=== PATIENT | female | born 1945 | race Caucasian/White ===

== ENCOUNTER → 2016-09-28 | Outpatient (REF) | payer MEDICARE ==
[~2016-09-28] MED LIST: AMLO5TAB2 PO; AVAP300T23 PO; CALCTAB68 PO; CARV6.25 PO; CENTTAB12 PO; CHLO125TA PO; CHLO25TA GT; KLOR20PO12 PO; LUTE20CA PO; OMEP40CA2 PO; PRAV40TA2 PO; TIMO5OPG OD; VITA-171 PO; VITA10006 PO
== END ==
LOC: M LAB REF 18:29
PROVIDERS: ATTEND Nurse Practitioner Adult Health
DX: R30.0 Dysuria (principal)

== ENCOUNTER 2018-06-13 14:02 | Outpatient (RCR) | payer MEDICARE ==
[~2018-06-13 14:02] MED LIST changes: -AMLO5TAB2 PO; +AMLO5TAB6 PO
== END 2018-06-17 ==
LOC: M ST 14:02
PROVIDERS: ATTEND Otolaryngology
DX: R49.0 Dysphonia (principal); M62.81 Muscle weakness (generalized)
CPT/HCPCS: 92524; G9171; G9172

== ENCOUNTER 2018-07-09 12:45 | Outpatient (RCR) | payer MEDICARE | END 2018-07-18 | LOC: M ST 12:45 | PROVIDERS: ATTEND Otolaryngology | DX: R49.8 Other voice and resonance disorders (principal); G60.8 Other hereditary and idiopathic neuropathies ==

== ENCOUNTER 2018-07-22 12:41 | Outpatient (RCR) | payer MEDICARE | END 2018-08-15 | LOC: M ST 12:41 | PROVIDERS: ATTEND Otolaryngology | DX: R49.8 Other voice and resonance disorders (principal); R49.0 Dysphonia; G60.8 Other hereditary and idiopathic neuropathies ==

== ENCOUNTER 2018-08-19 13:17 | Outpatient (RCR) | payer MEDICARE | END 2018-09-15 | LOC: M ST 13:17 | PROVIDERS: ATTEND Otolaryngology | DX: R49.0 Dysphonia (principal) ==

== ENCOUNTER 2019-07-12 14:14 | Inpatient (IN) | payer MEDICARE ==
[~2019-07-12] VITALS: Ht 157.5 cm; Wt 54.2 kg
[~2019-07-12 14:14] MED LIST changes: -OMEP40CA2 PO; +OMEP40CA97 PO; +TIMO0.5S7 OD; -TIMO5OPG OD
[2019-07-12] MEDS ORDERED: MORPHINE 4 MG/ML 1ML VIAL/SYRINGE (J2270) IV ONE (15:00)
[2019-07-12] MEDS ORDERED: NITR1CAP26 PO (15:18)
[2019-07-12] MEDS ORDERED: MUCI600T31 PO (15:18)
[2019-07-12] MEDS ORDERED: CALC250T PO (15:18)
[2019-07-12] MEDS ORDERED: NITR-67 PO (15:18)
[2019-07-12] MEDS ORDERED: fentaNYL 100 MCG/2 ML INJECTION (J3010) IV ONE ×2 (15:45→16:15)
[2019-07-12] MEDS ORDERED: ISOVUE-370 76% 100ML VIAL (Q9967) As Ordered ONE (16:32)
[2019-07-12 17:06] LABS: BASO # 0.1 10^3/uL (0.0-0.2); BASO % 0.9 % (0.0-1.0); EOS # 0.1 10^3/uL (0.0-0.5); EOS % 0.9 % (0.0-3.0); HEMATOCRIT 43.7 % (36.0-47.0); HEMOGLOBIN 13.7 g/dl (12.0-15.5); LYMPH # 0.6 10^3/uL (1.5-5.0); LYMPH % 11.9 % (24.0-44.0); MEAN CORPUSCULAR HEMOGLOBIN 28.6 pg (27.0-33.0); MEAN CORPUSCULAR HGB CONC 31.4 g/dl (32.0-36.5); MEAN CORPUSCULAR VOLUME 91.2 fl (80.0-96.0); MONO # 0.3 10^3/uL (0.0-0.8); MONO % 4.6 % (0.0-5.0); NEUTROPHILS # 4.3 10^3/uL (1.5-8.5); NEUTROPHILS % 80.6 % (36.0-66.0); PLATELET COUNT, AUTOMATED 199 10^3/uL (150-450); RED BLOOD COUNT 4.79 10^6/uL (4.00-5.40); WHITE BLOOD COUNT 5.4 10^3/uL (4.0-10.0)
[2019-07-12] MEDS ORDERED: diazePAM 5 MG TAB PO ONE (19:00)
[2019-07-12] MEDS ORDERED: NORCO, ANEXSIA 5/325MG TABLET (HYDROcodone/ACETAMINOPHEN) PO ONE (19:00)
[2019-07-12] MEDS: PRAVASTATIN 20 MG TAB PO SCH (21:00)
--- NOTE | 2019-07-12 22:02 | REPVR ---
PROCEDURE INFORMATION: Exam: MR Thoracic Spine Without Contrast Exam date and time: 07/12/2019 9:02 PM Age: 74 years old Clinical indication: Pain and injury or trauma; Initial encounter; Sprain or strain; Pain in thoracic spine; Without myelpathy or radiculopathy; Injury date: 07/12; Injury details: , PT states she had fallen and has had lots of pain; Additional info: L1 enplate depression w/ retropulsion, eval ligaments TECHNIQUE: Imaging protocol: Multiplanar magnetic resonance images of the thoracic spine without contrast. COMPARISON: CT Spine,thoracic w/o contrast 07/12/2019 3:04 PM FINDINGS: Motion artifact. Thoracic levels demonstrate preserved height and AP alignment. There are a few incidental vertebral body hemangiomas. No evidence of discitis/osteomyelitis. No abnormal cord signal or cord expansion. No epidural fluid collection. No significant central or foraminal compromise throughout. IMPRESSION: 1. No acute abnormality involving the thoracic spine. 2. Widely patent central canal. Electronically signed by: Dex Field On 07/12/2019 22:01:38 PM
--- NOTE | 2019-07-12 22:06 | REPVR ---
PROCEDURE INFORMATION: Exam: MR Lumbar Spine Without Contrast. Exam date and time: 07/12/2019 9:02 PM Age: 74 years old Clinical indication: Pain and injury or trauma; Initial encounter; Sprain or strain, lumbar ligaments; Low back pain; Injury date: 07/12; Injury details: PT states she had fallen and has had lots of pain; Additional info: L1 enplate depression w/ retropulsion, eval ligaments TECHNIQUE: Imaging protocol: Multiplanar magnetic resonance images of the lumbar spine without contrast. COMPARISON: CT Spine, lumbar w/o contrast 07/12/2019 3:04 PM FINDINGS: Eshj-rj-khtsylge superior endplate compression fracture involving L1 with edema. Osseous retropulsion measures 3 mm. Trace anterolisthesis of L2 on L3. Remainder demonstrates preserved height and AP alignment. There is disc space narrowing at L5-S1, moderate to severe. There are degenerative endplate changes at L5-S1. No epidural fluid collection. Conus medullaris terminates at L1. No evidence of ligamentous injury. L1-L2: No central or foraminal stenosis. L2-L3: Minimal disc bulge and mild bilateral facet joint arthropathy. No significant central or foraminal stenosis. L3-L4: Uixa-ep-ogqhjtxo bilateral facet joint arthropathy. No significant central or foraminal stenosis. L4-L5: Mild disc bulge and svag-il-xgpteihw bilateral facet joint arthropathy. No significant central or foraminal stenosis. L5-S1: Mild to moderate disc bulge and mild bilateral facet joint arthropathy. No significant central canal stenosis. There is napm-eo-zsxlgngm right and moderate left foraminal stenosis. IMPRESSION: Ydrh-pd-rfhlqsuz superior endplate compression fracture involving L1, acute/subacute. Mild osseous retropulsion without significant central canal stenosis. Electronically signed by: Dex Field On 07/12/2019 22:05:56 PM
[2019-07-12] MEDS ORDERED: CENT1TAB PO (22:51)
[2019-07-12] MEDS ORDERED: TIMO0.5S3 OU (22:51)
[2019-07-12] MEDS ORDERED: VITA100054 PO (22:51)
[2019-07-13] MEDS ORDERED: ACETAMINOPHEN TAB 650MG DOSE (2X325MG) PO PRN (00:15)
[2019-07-13] MEDS ORDERED: KETOROLAC 30 MG/ML VIAL (J1885) IV PRN (00:15)
[2019-07-13 02:15] VITALS: BP 172/100
[2019-07-13 03:20] VITALS: BP 144/80
--- NOTE | 2019-07-13 06:46 | REP ---
CT CERVICAL SPINE WITHOUT CONTRAST: 07/12/2019. Clinical history: Trauma, patient fell. Evaluate for compression fracture or other post traumatic change. Findings: Standard trauma protocol with coronal and sagittal bone window reconstructions provided. The normal sagittal lordosis is maintained. Cervical spondylosis at C5-6 and C6-7 with small anterior osteophytes seen. No compression deformity or destructive lesions. Slight disc space narrowing at C5-6 with other disc space heights intact. The dens shows normal relationship to C1 on all images with no dens fracture. Craniocervical junction intact. Facet arthropathy upper cervical levels on the left. Spinous processes, lamina, pedicles, facets and transverse processes otherwise intact. The upper thoracic vertebral bodies and those portions of the first four paired ribs and medial clavicles seen were unremarkable. The lung apices visible were unremarkable. Dilatation of the aortic arch with tortuosity. Atherosclerotic calcifications noted. Impression: 1. Diffuse degenerative disc changes without compression fracture, malalignment or other acute finding. Electronically Signed by Vahe Lay MD 07/13/2019 08:05 P
[2019-07-13] MEDS: MORPHINE 4 MG/ML 1ML VIAL/SYRINGE (J2270) IV PRN ×2 (06:47→13:42)
--- NOTE | 2019-07-13 06:50 | REP ---
CT THORACIC SPINE WITHOUT CONTRAST: 07/12/2019. Comparison: CT angiography and lateral chest 04/06/2016. Clinical history: Trauma, patient fell. Findings. Trauma protocol was utilized. The thoracic vertebral bodies show no compression fracture or malalignment. Posterior ribs included were unremarkable. Anterior clavicles intact. Rib articulations preserved. Posterior elements show no fracture or focal lesion. Those portions of lungs visible were intact. There is compressive atelectatic change adjacent to the descending thoracic aorta. Again noted to be a thoracic aortic aneurysm involving the ascending arch and descending portion. Only a portion of the ascending aorta is seen. At the aydin the descending aorta has an AP diameter 4.2 cm, 4.1 cm at this same level on previous CT. Aneurysm appears larger in the distal descending aorta, but it is difficult to compare this thoracic CT to a chest angiogram Impression: 1. Demineralization, but no visible fracture, compression deformity, avulsion or malalignment. No central canal stenosis. Posterior rib articulations intact. 2. Thoracic aortic aneurysm seen in part. Some of it appears to be larger in diameter than 16. Comparison is difficult when comparing to a complete thoracic aortogram. Some small amount of atelectatic change or effusion adjacent to the aorta inferiorly. Electronically Signed by Vahe Lay MD 07/13/2019 08:05 P
--- NOTE | 2019-07-13 07:06 | REP ---
CT LUMBAR WITHOUT CONTRAST: 07/12/2019. Comparison: CT abdomen and pelvis 09/11/2017. Clinical history: Trauma. Possible fracture. Known thoraco-abdominal thoracic aneurysm. Findings. Standard trauma protocol utilized. The normal lordosis is reduced. There is disc space narrowing and vacuum phenomenon at L5-S1, not much change. Discogenic sclerosis in the sacral aspect of the L5-S1 level. The other disc levels show slight narrowing at L2-3 disc space. Anterior osteophytes noted there. There is a mild grade 1 endplate depression at L1. This could be acute. There is slight retropulsion of the posterior margin of the L1 vertebral body superiorly. However, this does not cause any significant central canal stenosis with AP canal diameter still 12 mm. There is no evidence for instability. Adjacent ribs intact at T12. Is there tenderness at the spinous process of L1? I do not see fracture of the remainder of the lumbar vertebral bodies or visible sacrum. The posterior elements were intact although there is some facet arthritis at L4-5 and L5-S1. SI joints show some minor sclerosis iliac margins but no erosion or narrowing of the joint space. There is atherosclerotic calcification of the aorta without aneurysm of the abdominal aorta. Extensive sigmoid diverticulosis noted without diverticulitis. Impression: 1. Grade 1 superior endplate depression of L1 that may be acute. No posterior element involvement. Posterior neural arch shows very slight retropulsion of the few millimeters of the superior aspect of L1 but the AP canal diameter remains widely patent at 12 mm. 2. Small marginal osteophytes at multiple levels and degenerative disc disease greatest at L5-S1 with some progression since the 2018 study. 3. Facet arthropathy lower lumbar spine without spinal central canal stenosis or spondylolysis. Electronically Signed by Vahe Lay MD 07/13/2019 08:05 P
--- NOTE | 2019-07-13 07:23 | HPEPDOC ---
General Date of Admission Jul 13, 2019 at 00:05 Date of Service: Jul 13, 2019 Attending Physician: JOHNNY QUINONES MD Chief Complaint The patient is a 74-year-old female admitted with a reason for visit of Compression Fx Of L1 Lumbar Vertabra. 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 In the ED she was in significant 10/10 lower back pain and vitals on arrival were 207/112. HR 84, afebrile and saturating well on room air. She was given fentanyl, morphine, norco and valium with some relief. She had multiple CTs of her cervica, thoracic and lumbar spine as well as MRIs, with a lumbar spine MRI revealing that she sustained a dhti-zq-cliptypx superior endplate compression fracture involving L1 with mild osseous retropulsion without significant central canal stenosis. Orthopedics was consulted by the ED and suggested a TLSO brace and pain control with admission to medicine. The rest of her workup was grossly benign. Home Medications Scheduled Calcium Citrate (Calcium Citrate) 250 Mg Tablet, 500 MG PO BID, (Reported) Cholecalciferol (Vitamin D3) (Vitamin D3) 1,000 Unit Capsule, 1,000 UNIT PO DAILY, (Reported) Guaifenesin (Mucinex) 600 Mg Tab.er.12h, 600 MG PO BID, (Reported) Lutein (Lutein) 20 Mg Cap, 20 MG PO DAILY, (Reported) Multivit-Min/FA/Lycopen/Lutein (Centrum Silver Tablet) 1 Each Tablet, 1 TAB PO DAILY, (Reported) Nitrofurantoin Macrocrystal (Nitrofurantoin) 100 Mg Capsule, 100 MG PO DAILY, (Reported) Pravastatin Sodium (Pravastatin Sodium) 40 Mg Tab, 20 MG PO DAILY, (Reported) Timolol Maleate (Timoptic-Xe) 0.5% Evelina.gel, 1 DROP OU QAM, (Reported) Allergies Coded Allergies: infliximab (Verified Allergy, Severe, anaphylaxis/face swelling, 07/13/19) anaphylaxis Penicillins (Verified Allergy, Intermediate, amoxicillin=rash/facial swelling, 07/13/19) Hives NSAIDS (Non-Steroidal Anti-Inflamma (Verified Allergy, Unknown, HIVES,RASH ON FACE, 07/13/19) Uncoded Allergies: METAL (Adverse Reaction, Unknown, RASH,REDNESS, 07/05/09) Past Medical History Medical History Ulcerative colitis Psoriatic arthritis Diverticulosis without perforation GERD HTN 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 AAA being monitor Thoracic AA repaired Surgical History thoracic AA repair adrenal mass removal hysterectomy tonsillectomy A-FIB/CHADSVASC A-FIB History Current/History of A-Fib/PAF?: No Current PO Anticoag Therapy: No Age/Risk Factor Scoring CHADSVASC: CHADSVASC Response (Comments) Value Age Risk Factor Age 65-74 years old 1 Gender Risk Factor Female 1 Hx of CHF No 0 Hx of HTN Yes 1 Hx of Stroke/TIA/or VTE No 0 Hx of Diabetes No 0 Hx of Vascular Disease No 0 Total 3 Treatment Treatment ordered: NONE Reason Anticoagulant not given: Not indicated/[id number] Review of Systems Constitutional: Denies: Chills, Fever, Night Sweats Eyes: Denies: Pain, Vision change ENT: Denies: Head Aches, Ear Pain, Dysphagia Skin: Denies: Rash, Lesions, Breakdown Pulmonary: Denies: Dyspnea, Cough Cardiovascular: Denies: Chest Pain, Palpitations, Orthopnea, Paroxysmal Noc. Dyspnea, Lt Headedness Gastrointestinal: Denies: Nausea, Vomiting, Abdominal Pain, Diarrhea Genitourinary: Denies: Dysuria, Frequency, Incontinence, Hematuria, Retention, Other Symptoms Hematologic: Denies: Bruising, Bleeding Excessively Endocrine: Denies: Polydipsia, Polyphagia, Polyuria, Heat Intolerance, Cold Intolerance, Other Endocrine Sx Musculoskeletal: Reports: Back Pain; Denies: Neck Pain, Shoulder Pain, Arm Pain, Hand Pain, Leg Pain, Foot Pain, Joint Pain, Muscle Pain, Spasms, Other Symptoms Neurological: Denies: Weakness, Numbness, Change in speech, Confusion Psych: Reports: Mood Normal; Denies: Depression, Memory Issues Physical Examination General Exam: Positive: Alert, No Acute Distress Eye Exam: Positive: PERRLA, Conjunctiva & lids normal, EOMI; Negative: Sclera icteric ENT Exam: Positive: Atraumatic, Mucous membr. moist/pink, Pharynx Normal Neck Exam: Positive: Supple; Negative: JVD, thyromegaly Chest Exam: Positive: Clear to auscultation, Normal air movement Heart Exam: Positive: Rate Normal, Regular Rhythm, Normal S1, Normal S2; Negative: Murmurs, Rubs Telemetry: Positive: No significant arrhythmia Abdomen Exam: Positive: Normal bowel sounds, Soft; Negative: Tenderness, Hepatospenomegaly Extremity Exam: Positive: Normal pulses; Negative: Clubbing, Cyanosis, Edema Skin Exam: Positive: Nl turgor and temperature; Negative: Breakdown, Lesion Neuro Exam: Positive: Normal Speech, Strength at 5/5 X4 ext, Sensation Intact, Cranial Nerves 3-12 NL Psych Exam: Positive: Mental status NL, Mood NL, Oriented x 3 Vital Signs Vital Signs Date Time Temp Pulse Resp B/P (MAP) Pulse Ox O2 Delivery O2 Flow Rate FiO2 07/13/19 06:57 17 95 Room Air 07/13/19 03:20 144/80 (101) 07/13/19 02:15 97.6 101 Laboratory Data Labs 24H Laboratory Tests 2 07/12/19 14:48: Immature Granulocyte % (Auto) 1.1, Neutrophils (%) (Auto) 80.6H, Lymphocytes (%) (Auto) 11.9L, Monocytes (%) (Auto) 4.6, Eosinophils (%) (Auto) 0.9, Basophils (%) (Auto) 0.9, Neutrophils # (Auto) 4.3, Lymphocytes # (Auto) 0.6L, Monocytes # (Auto) 0.3, Eosinophils # (Auto) 0.1, Basophils # (Auto) 0.1, Nucleated Red Blood Cells % (auto) 0.0 07/12/19 16:13: POC Glucose (Misc Panel) 115H, POC Sodium (Misc Panel) 132L, POC Potassium (Misc Panel) 4.0, POC Chloride (Misc Panel) 95L, POC Total CO2 (Misc Panel) 30.0H, POC Blood Urea Nitrogen (Misc Panel 16, POC Ionized Calcium (Misc Panel) 4.9, POC Creatinine (Misc Panel) 0.9, POC Hematocrit (Misc Panel) 44.0 CBC/BMP Laboratory Tests 07/12/19 14:48 Assessment/Plan 74 yo W who presented to the ED with back pain after slipping and falling out of her rolling office chair while she was working in her office and sustained a myac-jw-huvbesdf superior endplate compression fracture involving L1 with mild osseous retropulsion without significant central canal stenosis with orthopedics recommending TLSO brace and pain control. L1 compression fracture: -On morphine 4Q6H PRN -Flexeril 5 TID for spasms -TLSO brace per orthopedics -orthopedics consult Otherwise continue home meds -Macrobid for recurrent UTIs suppressive therapy -Pravachol for HLD -TImolol eye drops for glaucoma -Calcium carbonate and Vit D DVT ppx: lovenox Diet: regular Plan / VTE VTE Prophylaxis Ordered?: Yes JOHNNY QUINONES MD Jul 13, 2019 07:23
--- NOTE | 2019-07-13 08:03 | REP ---
CT ANGIOGRAM CHEST: 07/12/2019. Comparison: 04/12/2016. Clinical history: Known thoracic aortic aneurysm. CT thoracic spine suggested some atelectasis and/or fluid or both adjacent to the distal descending aorta. Technique: The patient received a bolus of 100 mL Isovue 370, scanning through the chest with our CT thoracic aortogram technique with axial and sagittal standard reconstructions and coronal MIP reformats. Findings: Lung morales are well inflated. There is no pneumothorax. The distal descending thoracic aortic aneurysm shows increase in peripheral thrombus and size of aorta. Transverse diameter of 5.5 cm on image 77 and at an equivalent level on the 2016 study 4.6 cm. Peripheral atherosclerotic plaque increased. There is compressive atelectatic change showing enhancement of that atelectatic lung of the lower lobe adjacent to this enlarged aneurysm. There is a small amount of fluid in the medial basal segment left lower lobe. This does not have evidence for hyperdense enhancement or enhancing blood within it. I do not suspect a leak. There is no evidence of dissection. Dilatation of the ascending aorta from the root with diameter 4.7 cm maximum. The proximal arch transverse diameter of 3.9 cm. The distal arch transverse diameter is 3.8 cm. It is quite tortuous. I do not see dissection. There are sternotomy wires from a presumed repair. There is an aberrant right subclavian artery coursing posterior to the esophagus and trachea as before. Both right and left common carotid arteries and the left subclavian show origin off the arch. There is no pathologic sized mediastinal or hilar adenopathy. There is no pneumothorax. Remainder of the ribs, scapulae, clavicles and humeral heads not seen on thoracic spine CT were unremarkable. Impression: 1. Ascending arch and descending thoracic aortic aneurysm with maximum AP diameter of the ascending aorta 4.7 cm. This was 0.4 cm on the previous study. The maximum transverse diameter of the descending aorta just before the aortic hiatus of the diaphragm was 5.5 cm, previously 4.6 cm in 2016. No dissection. 2. Atelectatic change adjacent to this ectatic tortuous distal aorta with enhancement of that atelectatic lung. There is small volume of pleural effusion adjacent. Pleural fluid is very low density. No evidence of a leak. 3. 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 Electronically Signed by Vahe Lay MD 07/13/2019 08:11 P
--- NOTE | 2019-07-13 08:09 | REP ---
CT ANGIOGRAM ABDOMEN AND PELVIS: 07/12/2019. Clinical history: Thoracic aortic aneurysm, please evaluate abdominal aorta. Technique: Bolus of 100 mL Isovue 370, scanning through the abdomen with coronal and sagittal reformats and coronal MIP reformats provided. Comparison: 09/11/2017. Findings: The distal thoracic aorta shows aneurysm up to 5.5 cm in transverse diameter with heavy atherosclerotic calcifications peripherally. There is enhancing atelectatic lung draped around the descending aorta distally. Trace amount of effusion in the medial basal segment left lower lobe, quite low density, no blood. No suspected leak. Heavy atherosclerotic plaque and thrombus around the lumen as before. 3.5 cm AP diameter at the aortic hiatus. Just below the SMA takeoff it has tapered to 2.7 cm. At the bifurcation it measures 1.3 cm. Atherosclerotic calcifications peripherally but no dissection. No distal abdominal aortic aneurysm. No evidence of a leak. No periaortic or other retroperitoneal pathologic sized lymphadenopathy. Liver, spleen, gallbladder, pancreas and adrenal glands grossly unchanged. The kidneys show an extrarenal pelvis on the right side, but not the left. No hydroureter or ureteral stone. No renal stone. Upper pole cyst on the left about a centimeter. Colon and small bowel loops without acute finding. There is diverticulosis of the left colon without diverticulitis. Lung window review of all slices shows some gas scattered throughout the small bowel and colon but no perforation or free air. Bone windows were discussed in detail on the CT lumbar spine. Grade 1 compression superior endplate L1 with minimal retropulsion and no central canal stenosis at L1. CT pelvis: The bladder is well distended. There is no stone, mass or wall thickening. Extensive diverticulosis distal left colon and sigmoid without diverticulitis. No ventral or inguinal hernia. No pelvic mass. The bones of the pelvis and hips with minimal degenerative change and no destructive lesion. Impression: 1. Distal thoracic aortic aneurysm extending into the proximal abdominal cavity with aneurysmal dilatation up to 3.6 cm of the abdominal aorta. No dissection. No leak. The infrarenal abdominal aortic aneurysm has normal diameter. It is tortuous and has some calcifications but no dissection. No other significant soft tissue finding. 2. Grade 1 superior endplate wedge compression deformity of L1 with minimal retropulsion about 2 mm of the superior margin of the L1 at the neural canal. No central canal stenosis with over 12 mm AP diameter. Electronically Signed by Vahe Lay MD 07/13/2019 08:11 P
[2019-07-13] MEDS: CYCLOBENZAPRINE 5MG TABLET PO PRN ×2 (08:32→20:27)
[2019-07-13] MEDS: TIMOLOL XE GFS 0.5% OPHTH 5 ML OU SCH (08:40)
[2019-07-13] MEDS: VITAMIN D 1,000 INTERNATIONAL UNITS TABLET PO SCH (08:40)
[2019-07-13] MEDS: guaiFENesin ER 600 MG TAB PO SCH ×2 (08:40→20:27)
[2019-07-13] MEDS: MULTIVITAMINS/MINERALS THERAP 1 TAB PO SCH (08:40)
[2019-07-13] MEDS: CALCIUM CARBONATE 500 MG CHEW U/D PO SCH ×3 (08:40→20:27)
[2019-07-13] MEDS: ENOXAPARIN 40 MG/0.4 ML SYRINGE (J1650) SC SCH (08:40)
[2019-07-13] MEDS: NITROFURANTOIN (MACROBID) 100 MG CAP PO SCH (08:40)
[2019-07-13] MEDS ORDERED: PERCOCET 5MG/325MG TAB PO PRN (10:30)
--- NOTE | 2019-07-13 14:06 | CR ---
DATE OF CONSULTATION: 07/13/2019 CHIEF COMPLAINT: Low back pain. Patient presented to the emergency room (ER) today after a slip and fall at home after she fell off her office chair. She immediately appreciated increased pain in the low back and inability to ambulate. She denies any numbness, tingling, fevers, chills, nausea, vomiting, saddle anesthesia, bowel or bladder incontinence, just severe, debilitating 10/10 pain that is sharp, along with muscle spasms of the low back. Denies any pain elsewhere. The pain is made worse with any sort of movements, going to side, sitting up and attempting to stand, and improved with only laying completely still. A complete 10 system review was conducted and pertinent positive and negatives in the history of present illness (HPI). All other systems negative. ALLERGIES: ASPIRIN, NONSTEROIDAL ANTI-INFLAMMATORY DRUGS (NSAIDS) , AMOXICILLIN and REMICADE. The patient's medications are only eye drops for prevention of glaucoma, has ceased her hypertensive medications. PAST MEDICAL HISTORY: 1. Glaucoma. 2. Hypertension. 3. Abdominal aortic aneurysm. PAST SURGICAL HISTORY: 1. Stent placement. 2. Adrenal surgery. SOCIAL HISTORY: Patient does not drink, does not smoke and does not use illicit drugs. PHYSICAL EXAMINATION: Patient is awake, alert and oriented, well-dressed, appropriate affect, ventilated on room air. Normocephalic, atraumatic. BILATERAL UPPER EXTREMITIES: C5-T1: 2/2 sensation to light touch. C5-T1: 5/5 motor strength. Skin intact. Radial pulses 2+, regular rate. There is palpation throughout the entire extremity. Negative Mccracken's. BILATERAL LOWER EXTREMITIES: Negative clonus. No tenderness to palpation. L2-S1: 5/5 motor strength with significant low back pain. L5-S1: 2/2 sensation intact to light touch. Negative clonus. Skin is intact. Posterior tibial pulses 2+, regular rate. RECTAL EXAM: Deferred. IMAGING: Reviewed. Lumbar and thoracic x-rays and CT scan reviewed, demonstrating a burst fracture of the L1 vertebra with minimal retropulsion. MRI reviewed of the lumbar and thoracic spine demonstrating burst structure L1 with minimal retropulsion and no signs of cord compression, along with intact posterior ligamentous complex. I discussed with the patient and the staff that, given the fact that the patient has a burst fracture, but it is intact posterior ligamentous complex, this is a stable injury. We can treat this nonoperatively. The patient will be admitted for pain control under the medicine service. We will help arrange a TLSO brace for her to help that she can wear for support and for pain control. Otherwise, she will be able to weight bear as tolerated and ambulate as tolerated, out of bed as tolerated. Can follow up with orthopedic service as an outpatient upon discharge. I discussed with the patient that if she starts having some bowel and bladder incontinence, saddle anesthesia, coordination or balance issues, then she needs to immediately agree to present to the ER.
[2019-07-13 15:13] VITALS: BP 163/100
[2019-07-13] MEDS: PERCOCET 5MG/325MG TAB PO PRN (15:44)
[2019-07-13] MEDS ORDERED: MORPHINE 4 MG/ML 1ML VIAL/SYRINGE (J2270) IV PRN (17:42)
[2019-07-13] MEDS: PRAVASTATIN 20 MG TAB PO SCH (20:27)
[2019-07-13 22:00] VITALS: BP 170/88
[2019-07-14] MEDS: PERCOCET 5MG/325MG TAB PO PRN ×3 (03:22→16:44)
[2019-07-14 06:00] VITALS: BP 120/83
[2019-07-14 06:12] LABS: HEMATOCRIT 45.5 % (36.0-47.0); MEAN CORPUSCULAR HEMOGLOBIN 28.5 pg (27.0-33.0); MEAN CORPUSCULAR HGB CONC 30.8 g/dl (32.0-36.5); MEAN CORPUSCULAR VOLUME 92.5 fl (80.0-96.0); PLATELET COUNT, AUTOMATED 155 10^3/uL (150-450); RED BLOOD COUNT 4.92 10^6/uL (4.00-5.40)
[2019-07-14 06:33] LABS: BLOOD UREA NITROGEN 18 MG/DL (7-18); CALCIUM LEVEL 9.1 MG/DL (8.8-10.2); CARBON DIOXIDE LEVEL 26 MEQ/L (21-32); CHLORIDE LEVEL 99 MEQ/L (98-107); CREATININE FOR GFR 0.85 MG/DL (0.55-1.30); GLOMERULAR FILTRATION RATE > 60.0 (>39); GLUCOSE, FASTING 82 MG/DL (70-100); POTASSIUM SERUM 4.4 MEQ/L (3.5-5.1); SODIUM LEVEL 131 MEQ/L (136-145)
[2019-07-14] MEDS: ENOXAPARIN 40 MG/0.4 ML SYRINGE (J1650) SC SCH (09:00)
[2019-07-14] MEDS: CALCIUM CARBONATE 500 MG CHEW U/D PO SCH ×2 (09:14→21:00)
[2019-07-14] MEDS: NITROFURANTOIN (MACROBID) 100 MG CAP PO SCH (09:14)
[2019-07-14] MEDS: MULTIVITAMINS/MINERALS THERAP 1 TAB PO SCH (09:14)
[2019-07-14] MEDS: VITAMIN D 1,000 INTERNATIONAL UNITS TABLET PO SCH (09:14)
[2019-07-14] MEDS: guaiFENesin ER 600 MG TAB PO SCH ×2 (09:14→21:27)
[2019-07-14] MEDS: TIMOLOL XE GFS 0.5% OPHTH 5 ML OU SCH (09:16)
[2019-07-14] MEDS: SENOKOT S TAB PO SCH ×2 (09:21→21:27)
[2019-07-14] MEDS: NORCO, ANEXSIA 5/325MG TABLET (HYDROcodone/ACETAMINOPHEN) PO PRN ×3 (09:59→18:06)
[2019-07-14 14:00] VITALS: BP 132/90
--- NOTE | 2019-07-14 14:57 | IPNPDOC ---
Date Seen The patient was seen on 07/14/19. Progress Note SUBJECTIVE: Patient in examined this morning. She states that she is not in pain for shes got the morphine and 6, comfortable right now. She was evaluated by orthopedics and is now waiting for her brace. She has no complaints today. She denies chest pain, shortness breath, nausea, vomiting, fevers, and chills. OBJECTIVE PHYSICAL EXAMINATION: VITAL SIGNS: Please see below. GENERAL: Pleasant 74-year-old female lying flat in bed awake alert oriented speaking in complete sentences no acute distress HEENT: Moist mucous membranes no elevation in CVP CARDIOVASCULAR: S1 S2 regular no additional heart sounds appreciated. RESPIRATORY: Clear to auscultation bilaterally. ABDOMINAL: Bowel sounds present abdomen soft and nontender EXTREMITIES: No clubbing cyanosis or edema NEUROLOGICAL: no gross focal deficits appreciated PSYCHOLOGICAL: Appropriate LABORATORY DATA, MICROBIOLOGY: Please see below. IMAGING STUDIES: 07/12/[address] 1. Demineralization, but no visible fracture, compression deformity, avulsion or malalignment. No central canal stenosis. Posterior rib articulations intact. 2. Thoracic aortic aneurysm seen in part. Some of it appears to be larger in diameter than 10/16. Comparison is difficult when comparing to a complete thoracic aortogram. Some small amount of atelectatic change or effusion adjacent to the aorta inferiorly. Lumbar spine CT 1. Grade 1 superior endplate depression of L1 that may be acute. No posterior element involvement. Posterior neural arch shows very slight retropulsion of the few millimeters of the superior aspect of L1 but the AP canal diameter remains widely patent at 12 mm. 2. Small marginal osteophytes at multiple levels and degenerative disc disease greatest at L5-S1 with some progression since the 2018 study. 3. Facet arthropathy lower lumbar spine without spinal central canal stenosis or spondylolysis. Cervical spine CT 1. Diffuse degenerative disc changes without compression fracture, malalignment or other acute finding. CT angios of the chest 1. Ascending arch and descending thoracic aortic aneurysm with maximum AP diameter of the ascending aorta 4.7 cm. This was 0.4 cm on the previous study. The maximum transverse diameter of the descending aorta just before the aortic hiatus of the diaphragm was 5.5 cm, previously 4.6 cm in 2016. No dissection. 2. Atelectatic change adjacent to this ectatic tortuous distal aorta with enhancement of that atelectatic lung. There is small volume of pleural effusion adjacent. Pleural fluid is very low density. No evidence of a leak. 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 Distal thoracic aortic aneurysm extending into the proximal abdominal cavity with aneurysmal dilatation up to 3.6 cm of the abdominal aorta. No dissection. No leak. The infrarenal abdominal aortic aneurysm has normal diameter. It is tortuous and has some calcifications but no dissection. No other significant soft tissue finding. 2. Grade 1 superior endplate wedge compression deformity of L1 with minimal retropulsion about 2 mm of the superior margin of the L1 at the neural canal. No central canal stenosis with over 12 mm AP diameter. Thoracic spine MRI 1. No acute abnormality involving the thoracic spine. 2. Widely patent central canal Lumbar spine MRI [id number] superior endplate compression fracture involving L1, acute/subacute. Mild osseous retropulsion without significant central canal stenosis. ASSESSMENT AND PLAN: This is a 74 year-old female with compression fracture of the L1 lumbar vertebrae PROBLEMS: 1. L1 compression fracture. Transition Morphine to Tylenol, [place] 1-2 tabs for pain control and add Senokot S for constipation. c/w Flexeril 5 mg 3 times a day for spasms. Orthopedic consulted recommend TLSO brace weight bear as tolerated and ambulate as tolerated, out of bed as tolerated. Then follow-up with orthopedic upon discharge. Will check active vitamin D and calcium levels, continue with calcium citrate and vitamin D3 2. AAA. Monitored outpatient. Currently stable at 5.5 cm. Advised to follow-up with her outpatient provider as scheduled. 3. Hyperlipidemia.c/w pravastatin 4. Glaucoma. Continue with eyedrops as prescribed outpatient. DVT prophylaxis: TEDs DISPOSITION: Brace and PT + OT clearance VS, I&O, 24H, Fishbone Vital Signs/I&O Vital Signs Date Time Temp Pulse Resp B/P (MAP) Pulse Ox O2 Delivery O2 Flow Rate FiO2 07/14/19 14:25 18 07/14/19 14:00 98.2 99 132/90 (104) 97 Room Air I&O- Last 24 Hours up to 6 AM 07/14/19 06:00 Intake Total 480 ml Output Total 150 ml Balance 330 ml Laboratory Data 24H LABS Laboratory Tests 2 07/14/19 05:51: Nucleated Red Blood Cells % (auto) 0.0, Anion Gap 6L, Glomerular Filtration Rate > 60.0, Calcium Level 9.1 CBC/BMP Laboratory Tests 07/14/19 05:51 ALVINO ROSS DO Jul 14, 2019 14:57
[2019-07-14] MEDS: CYCLOBENZAPRINE 5MG TABLET PO PRN (18:06)
[2019-07-14 21:12] VITALS: BP 136/83
[2019-07-14] MEDS: PRAVASTATIN 20 MG TAB PO SCH (21:27)
[2019-07-15] MEDS: NORCO, ANEXSIA 5/325MG TABLET (HYDROcodone/ACETAMINOPHEN) PO PRN ×4 (02:00→21:10)
[2019-07-15 05:28] VITALS: BP 116/80
[2019-07-15] MEDS: CYCLOBENZAPRINE 5MG TABLET PO PRN (05:33)
[2019-07-15 06:32] LABS: HEMATOCRIT 42.3 % (36.0-47.0); MEAN CORPUSCULAR HEMOGLOBIN 28.4 pg (27.0-33.0); MEAN CORPUSCULAR HGB CONC 30.7 g/dl (32.0-36.5); MEAN CORPUSCULAR VOLUME 92.6 fl (80.0-96.0); PLATELET COUNT, AUTOMATED 141 10^3/uL (150-450); RED BLOOD COUNT 4.57 10^6/uL (4.00-5.40); WHITE BLOOD COUNT 5.2 10^3/uL (4.0-10.0)
[2019-07-15 06:57] LABS: BLOOD UREA NITROGEN 15 MG/DL (7-18); CALCIUM LEVEL 8.3 MG/DL (8.8-10.2); CARBON DIOXIDE LEVEL 27 MEQ/L (21-32); CHLORIDE LEVEL 100 MEQ/L (98-107); CREATININE FOR GFR 0.66 MG/DL (0.55-1.30); GLOMERULAR FILTRATION RATE > 60.0 (>39); GLUCOSE, FASTING 78 MG/DL (70-100); POTASSIUM SERUM 4.1 MEQ/L (3.5-5.1); SODIUM LEVEL 133 MEQ/L (136-145)
[2019-07-15] MEDS: VITAMIN D 1,000 INTERNATIONAL UNITS TABLET PO SCH (09:18)
[2019-07-15] MEDS: CALCIUM CARBONATE 500 MG CHEW U/D PO SCH ×2 (09:18→21:10)
[2019-07-15] MEDS: guaiFENesin ER 600 MG TAB PO SCH ×2 (09:18→21:10)
[2019-07-15] MEDS: SENOKOT S TAB PO SCH ×2 (09:18→21:10)
[2019-07-15] MEDS: NITROFURANTOIN (MACROBID) 100 MG CAP PO SCH ×2 (09:18→12:44)
[2019-07-15] MEDS: MULTIVITAMINS/MINERALS THERAP 1 TAB PO SCH (09:18)
[2019-07-15] MEDS: PERCOCET 5MG/325MG TAB PO PRN (09:19)
[2019-07-15] MEDS: TIMOLOL XE GFS 0.5% OPHTH 5 ML OU SCH (09:20)
[2019-07-15] MEDS: ENOXAPARIN 40 MG/0.4 ML SYRINGE (J1650) SC SCH (09:21)
--- NOTE | 2019-07-15 11:30 | IPNPDOC ---
Date Seen The patient was seen on 07/15/19. Progress Note SUBJECTIVE: Patient in examined this morning. She has worked with PT today with her brace and noticed that the pain is tolerable. She noticed better relief with the [place] versus the Percocet 2 tabs. Her abdomen is slightly distended for she is yet to have a bowel movement. She is able to eat a whole same as yesterday without any problems.She has no other complaints today. She denies chest pain, shortness breath, nausea, vomiting, fevers, and chills. OBJECTIVE PHYSICAL EXAMINATION: VITAL SIGNS: Please see below. GENERAL: Pleasant 74-year-old female lying flat in bed awake alert oriented speaking in complete sentences no acute distress HEENT: Moist mucous membranes no elevation in CVP CARDIOVASCULAR: S1 S2 regular no additional heart sounds appreciated. RESPIRATORY: Clear to auscultation bilaterally. ABDOMINAL: Bowel sounds present abdomen slightly distended but nontender EXTREMITIES: No clubbing cyanosis or edema NEUROLOGICAL: no gross focal deficits appreciated PSYCHOLOGICAL: Appropriate LABORATORY DATA, MICROBIOLOGY: Please see below. IMAGING STUDIES: 07/12/[address] 1. Demineralization, but no visible fracture, compression deformity, avulsion or malalignment. No central canal stenosis. Posterior rib articulations intact. 2. Thoracic aortic aneurysm seen in part. Some of it appears to be larger in diameter than 10/16. Comparison is difficult when comparing to a complete thoracic aortogram. Some small amount of atelectatic change or effusion adjacent to the aorta inferiorly. Lumbar spine CT 1. Grade 1 superior endplate depression of L1 that may be acute. No posterior element involvement. Posterior neural arch shows very slight retropulsion of the few millimeters of the superior aspect of L1 but the AP canal diameter remains widely patent at 12 mm. 2. Small marginal osteophytes at multiple levels and degenerative disc disease greatest at L5-S1 with some progression since the 2018 study. 3. Facet arthropathy lower lumbar spine without spinal central canal stenosis or spondylolysis. Cervical spine CT 1. Diffuse degenerative disc changes without compression fracture, malalignment or other acute finding. CT angios of the chest 1. Ascending arch and descending thoracic aortic aneurysm with maximum AP diameter of the ascending aorta 4.7 cm. This was 0.4 cm on the previous study. The maximum transverse diameter of the descending aorta just before the aortic hiatus of the diaphragm was 5.5 cm, previously 4.6 cm in 2016. No dissection. 2. Atelectatic change adjacent to this ectatic tortuous distal aorta with enhancement of that atelectatic lung. There is small volume of pleural effusion adjacent. Pleural fluid is very low density. No evidence of a leak. 3. 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 Distal thoracic aortic aneurysm extending into the proximal abdominal cavity with aneurysmal dilatation up to 3.6 cm of the abdominal aorta. No dissection. No leak. The infrarenal abdominal aortic aneurysm has normal diameter. It is tortuous and has some calcifications but no dissection. No other significant soft tissue finding. 2. Grade 1 superior endplate wedge compression deformity of L1 with minimal retropulsion about 2 mm of the superior margin of the L1 at the neural canal. No central canal stenosis with over 12 mm AP diameter. Thoracic spine MRI 1. No acute abnormality involving the thoracic spine. 2. Widely patent central canal Lumbar spine MRI [id number] superior endplate compression fracture involving L1, acute/subacute. Mild osseous retropulsion without significant central canal s tenosis. ASSESSMENT AND PLAN: This is a 74 year-old female with compression fracture of the L1 lumbar vertebrae PROBLEMS: 1. L1 compression fracture. c/eTylenol, [place] 1-2 tabs for pain control, Senokot S add MOM PRN for constipation. c/w Flexeril 5 mg 3 times a day for spasms. Orthopedic consulted recommend TLSO brace weight bear as tolerated and ambulate as tolerated, out of bed as tolerated. Then follow-up with orthopedic upon discharge. Will check active vitamin D and calcium levels, continue with calcium citrate and vitamin D3 2. AAA. Monitored outpatient. Currently stable at 5.5 cm. Advised to follow-up with her outpatient provider as scheduled. 3. Hyperlipidemia.c/w pravastatin 4. Glaucoma. Continue with eyedrops as prescribed outpatient. DVT prophylaxis: TEDs DISPOSITION: Brace and PT + OT clearance VS, I&O, 24H, Fishbone Vital Signs/I&O Vital Signs Date Time Temp Pulse Resp B/P (MAP) Pulse Ox O2 Delivery O2 Flow Rate FiO2 07/15/19 09:19 16 07/15/19 05:28 98.3 87 116/80 (92) 97 Room Air I&O- Last 24 Hours up to 6 AM 07/15/19 05:59 Intake Total 320 ml Output Total 550 ml Balance -230 ml Laboratory Data 24H LABS Laboratory Tests 2 07/15/19 06:00: Nucleated Red Blood Cells % (auto) 0.0, Anion Gap 6L, Glomerular Filtration Rate > 60.0, Calcium Level 8.3L CBC/BMP Laboratory Tests 07/15/19 06:00 ALVINO ROSS DO Jul 15, 2019 11:30
[2019-07-15] MEDS: PRAVASTATIN 20 MG TAB PO SCH (21:09)
[2019-07-15 22:00] VITALS: BP 123/84
[2019-07-16] MEDS: NORCO, ANEXSIA 5/325MG TABLET (HYDROcodone/ACETAMINOPHEN) PO PRN ×5 (03:06→21:56)
[2019-07-16] MEDS: CYCLOBENZAPRINE 5MG TABLET PO PRN (05:39)
[2019-07-16 06:00] VITALS: BP 125/83
[2019-07-16 07:13] LABS: HEMATOCRIT 39.1 % (36.0-47.0); HEMOGLOBIN 12.6 g/dl (12.0-15.5); MEAN CORPUSCULAR HEMOGLOBIN 29.2 pg (27.0-33.0); MEAN CORPUSCULAR HGB CONC 32.2 g/dl (32.0-36.5); MEAN CORPUSCULAR VOLUME 90.5 fl (80.0-96.0); PLATELET COUNT, AUTOMATED 152 10^3/uL (150-450); RED BLOOD COUNT 4.32 10^6/uL (4.00-5.40); WHITE BLOOD COUNT 3.9 10^3/uL (4.0-10.0)
[2019-07-16 07:40] LABS: BLOOD UREA NITROGEN 19 MG/DL (7-18); CALCIUM LEVEL 8.9 MG/DL (8.8-10.2); CARBON DIOXIDE LEVEL 30 MEQ/L (21-32); CHLORIDE LEVEL 99 MEQ/L (98-107); CREATININE FOR GFR 0.71 MG/DL (0.55-1.30); GLOMERULAR FILTRATION RATE > 60.0 (>39); GLUCOSE, FASTING 80 MG/DL (70-100); POTASSIUM SERUM 4.1 MEQ/L (3.5-5.1); SODIUM LEVEL 132 MEQ/L (136-145)
[2019-07-16] MEDS ORDERED: MIRALAX *UNIT DOSE* 17GM PACKET PO PRN (08:15)
[2019-07-16] MEDS: MULTIVITAMINS/MINERALS THERAP 1 TAB PO SCH (09:40)
[2019-07-16] MEDS: VITAMIN D 1,000 INTERNATIONAL UNITS TABLET PO SCH (09:40)
[2019-07-16] MEDS: guaiFENesin ER 600 MG TAB PO SCH ×2 (09:40→21:54)
[2019-07-16] MEDS: TIMOLOL XE GFS 0.5% OPHTH 5 ML OU SCH (09:40)
[2019-07-16] MEDS: ENOXAPARIN 40 MG/0.4 ML SYRINGE (J1650) SC SCH (09:41)
[2019-07-16] MEDS: SENOKOT S TAB PO SCH ×2 (11:26→21:54)
[2019-07-16] MEDS: BISACODYL 5 MG TAB PO SCH (11:26)
[2019-07-16] MEDS: CALCIUM CARBONATE 500 MG CHEW U/D PO SCH ×2 (11:26→21:54)
[2019-07-16] MEDS ORDERED: NITROFURANTOIN (MACROBID) 100 MG CAP PO SCH (12:30)
--- NOTE | 2019-07-16 12:52 | IPNPDOC ---
Date Seen The patient was seen on 07/16/19. Progress Note SUBJECTIVE: Patient in examined this morning. She has worked with PT today with her brace and noticed that the pain is tolerable. She noticed better relief with the [place] versus the Percocet 2 tabs. Her abdomen is slightly distended for she is yet to have a bowel movement. She is able to eat a whole same as yesterday without any problems.She has no other complaints today. She denies chest pain, shortness breath, nausea, vomiting, fevers, and chills. OBJECTIVE PHYSICAL EXAMINATION: VITAL SIGNS: Please see below. GENERAL: Pleasant 74-year-old female sitting up in a chair with a brace awake alert oriented speaking in complete sentences no acute distress HEENT: Moist mucous membranes no elevation in CVP CARDIOVASCULAR: S1 S2 regular no additional heart sounds appreciated. RESPIRATORY: Clear to auscultation bilaterally. ABDOMINAL: Hypoactive bowl sounds abdomen soft and nontender EXTREMITIES: No clubbing cyanosis or edema NEUROLOGICAL: no gross focal deficits appreciated PSYCHOLOGICAL: Appropriate LABORATORY DATA, MICROBIOLOGY: Please see below. IMAGING STUDIES: 07/12/[address] 1. Demineralization, but no visible fracture, compression deformity, avulsion or malalignment. No central canal stenosis. Posterior rib articulations intact. 2. Thoracic aortic aneurysm seen in part. Some of it appears to be larger in diameter than 10/16. Comparison is difficult when comparing to a complete thoracic aortogram. Some small amount of atelectatic change or effusion adjacent to the aorta inferiorly. Lumbar spine CT 1. Grade 1 superior endplate depression of L1 that may be acute. No posterior element involvement. Posterior neural arch shows very slight retropulsion of the few millimeters of the superior aspect of L1 but the AP canal diameter remains widely patent at 12 mm. 2. Small marginal osteophytes at multiple levels and degenerative disc disease greatest at L5-S1 with some progression since the 2018 study. 3. Facet arthropathy lower lumbar spine without spinal central canal stenosis or spondylolysis. Cervical spine CT 1. Diffuse degenerative disc changes without compression fracture, malalignment or other acute finding. CT angios of the chest 1. Ascending arch and descending thoracic aortic aneurysm with maximum AP diameter of the ascending aorta 4.7 cm. This was 0.4 cm on the previous study. The maximum transverse diameter of the descending aorta just before the aortic hiatus of the diaphragm was 5.5 cm, previously 4.6 cm in 2016. No dissection. 2. Atelectatic change adjacent to this ectatic tortuous distal aorta with enhancement of that atelectatic lung. There is small volume of pleural effusion adjacent. Pleural fluid is very low density. No evidence of a leak. 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 Distal thoracic aortic aneurysm extending into the proximal abdominal cavity with aneurysmal dilatation up to 3.6 cm of the abdominal aorta. No dissection. No leak. The infrarenal abdominal aortic aneurysm has normal diameter. It is tortuous and has some calcifications but no dissection. No other significant soft tissue finding. 2. Grade 1 superior endplate wedge compression deformity of L1 with minimal retropulsion about 2 mm of the superior margin of the L1 at the neural canal. No central canal stenosis with over 12 mm AP diameter. Thoracic spine MRI 1. No acute abnormality involving the thoracic spine. 2. Widely patent central canal Lumbar spine MRI [id number] superior endplate compression fracture involving L1, acute/subacute. Mild osseous retropulsion without significant central canal stenosis. ASSESSMENT AND PLAN: This is a 74 year-old female with compression fracture of the L1 lumbar vertebrae PROBLEMS: 1. L1 compression fracture. c/eTylenol, [place] 1-2 tabs for pain control, Senokot S + MOM PRN for constipation. c/w Flexeril 5 mg 3 times a day for spasms. Orthopedic consulted recommend TLSO brace weight bear as tolerated and ambulate as tolerated, out of bed as tolerated. Then follow-up with orthopedic upon discharge. Will check active vitamin D and calcium levels, continue with calcium citrate and vitamin D3, possible will need outpatient DEXA scan to asses her frax score to see if she needs Bisphosphate therapy 2. AAA. Monitored outpatient. Currently stable at 5.5 cm. Advised to follow-up with her outpatient provider as scheduled. 3. Hyperlipidemia.c/w pravastatin 4. Glaucoma. Continue with eyedrops as prescribed outpatient. DVT prophylaxis: TEDs DISPOSITION: Brace and PT + OT clearance, possible D.C in the AM VS, I&O, 24H, Fishbone Vital Signs/I&O Vital Signs Date Time Temp Pulse Resp B/P (MAP) Pulse Ox O2 Delivery O2 Flow Rate FiO2 1/29/20 09:30 16 07/16/19 06:00 97.5 82 125/83 (97) 97 Room Air I&O- Last 24 Hours up to 6 AM 07/16/19 06:00 Intake Total 1080 ml Output Total 500 ml Balance 580 ml Laboratory Data 24H LABS Laboratory Tests 2 07/16/19 06:52: Nucleated Red Blood Cells % (auto) 0.0, Anion Gap 3L, Glomerular Filtration Rate > 60.0, Calcium Level 8.9 CBC/BMP Laboratory Tests 07/16/19 06:52 Attending Note I personally saw and evaluated the patient. I agree with the findings and the plan of care documented above in the resident's note with the following addendum. Patient is on Nitrofurantoin for recurrent UTIs for chronic suppressive prophylaxis. Anticipate discharge in next 24 hours. ALVION ROSS DO Jul 16, 2019 12:52 SAM HARDY MD Jul 17, 2019 11:59
[2019-07-16] MEDS: NITROFURANTOIN (MACROBID) 100 MG CAP PO SCH (13:35)
[2019-07-16 14:12] VITALS: BP 127/80
[2019-07-16] MEDS: MOM 30ML SUSPENSION UDC PO PRN (17:33)
[2019-07-16] MEDS: PRAVASTATIN 20 MG TAB PO SCH (21:54)
[2019-07-16 22:00] VITALS: BP 116/75
[2019-07-17] MEDS: NORCO, ANEXSIA 5/325MG TABLET (HYDROcodone/ACETAMINOPHEN) PO PRN ×5 (04:29→23:20)
[2019-07-17] MEDS: MOM 30ML SUSPENSION UDC PO PRN (04:36)
[2019-07-17 06:02] VITALS: BP 123/85
[2019-07-17 06:44] LABS: HEMATOCRIT 39.7 % (36.0-47.0); HEMOGLOBIN 12.5 g/dl (12.0-15.5); MEAN CORPUSCULAR HEMOGLOBIN 28.7 pg (27.0-33.0); MEAN CORPUSCULAR HGB CONC 31.5 g/dl (32.0-36.5); MEAN CORPUSCULAR VOLUME 91.3 fl (80.0-96.0); PLATELET COUNT, AUTOMATED 166 10^3/uL (150-450); RED BLOOD COUNT 4.35 10^6/uL (4.00-5.40); WHITE BLOOD COUNT 3.5 10^3/uL (4.0-10.0)
[2019-07-17 07:01] LABS: BLOOD UREA NITROGEN 17 MG/DL (7-18); CALCIUM LEVEL 8.5 MG/DL (8.8-10.2); CARBON DIOXIDE LEVEL 31 MEQ/L (21-32); CHLORIDE LEVEL 100 MEQ/L (98-107); CREATININE FOR GFR 0.63 MG/DL (0.55-1.30); GLOMERULAR FILTRATION RATE > 60.0 (>39); GLUCOSE, FASTING 82 MG/DL (70-100); POTASSIUM SERUM 4.1 MEQ/L (3.5-5.1); SODIUM LEVEL 136 MEQ/L (136-145)
[2019-07-17] MEDS ORDERED: SENN-52 PO (07:40)
[2019-07-17] MEDS ORDERED: HYDR-3715 PO ×3 (07:40→09:56)
[2019-07-17] MEDS ORDERED: BISAC5TA PO (07:40)
[2019-07-17] MEDS ORDERED: CYCL5TAB PO (07:47)
[2019-07-17] MEDS: CALCIUM CARBONATE 500 MG CHEW U/D PO SCH ×2 (08:29→21:19)
[2019-07-17] MEDS: VITAMIN D 1,000 INTERNATIONAL UNITS TABLET PO SCH (08:29)
[2019-07-17] MEDS: BISACODYL 5 MG TAB PO SCH (08:29)
[2019-07-17] MEDS: guaiFENesin ER 600 MG TAB PO SCH ×2 (08:30→21:19)
[2019-07-17] MEDS: MULTIVITAMINS/MINERALS THERAP 1 TAB PO SCH (08:30)
[2019-07-17] MEDS: SENOKOT S TAB PO SCH ×2 (08:30→21:20)
[2019-07-17] MEDS: ENOXAPARIN 40 MG/0.4 ML SYRINGE (J1650) SC SCH (08:30)
[2019-07-17] MEDS: TIMOLOL XE GFS 0.5% OPHTH 5 ML OU SCH (08:31)
--- NOTE | 2019-07-17 11:37 | DS.PDOC ---
Discharge Summary General Date of Admission Jul 13, 2019 at 00:05 Date of Discharge 07/18/2019 Discharge Summary CC: Vascular Surgeron: Dr. Chaney as well as PCP DISCHARGE DIAGNOSIS: L1 compression fracture SECONDARY DIAGNOSIS: 1. Known AAA. 2. Hyperlipidemia 3. Glaucoma. 4. Chronic UTIs on suppressive prophylaxis 5. Psoriasis 6. Diverticulosis and colitis 7. Internal hemorrhoids. 8. Tubulovillous adenomas. 9. History of possible Ulcerative Colitis. PROCEDURES PERFORMED DURING STAY: None. CONSULTANTS: Dr. Flores, Orthopedic Surgery HOSPITAL COURSE: The patient was admitted to [facility] for [facility]. She was seen by orthopedic surgery who recommended TLSO brace and to work with PT. While she was regularly PT we made sure adequate pain control was given with Tylenol and not go 1-2 tabs. She has couple of sessions with PT and on the day of discharge she was stable to go home. Her active vitamin D and calcium levels were checked she was to continue with her home calcium citrate and vitamin D3 as prescribed. Advised patient to follow-up with her primary care provider to discuss about possible DEXA scan and calculate her frax score she is a candidate for bisphosphonate therapy. She was agreeable to the plan stated to her today. She had no complaints and was discharged home. DISCHARGE MEDICATIONS: Please see below. ALLERGIES: Please see below. SUBJECTIVE: Patient has no complaints today, and eager to go home. She denies chest pain, shortness, breath, nausea, vomiting, fevers, chills] OBJECTIVE: PHYSICAL EXAMINATION: VITAL SIGNS: Please see below. GENERAL: Pleasant 74-year-old female sitting up in a chair with a brace awake alert oriented speaking in complete sentences no acute distress HEENT: Moist mucous membranes no elevation in CVP CARDIOVASCULAR: S1 S2 regular no additional heart sounds appreciated. RESPIRATORY: Clear to auscultation bilaterally. ABDOMINAL: Hypoactive bowl sounds abdomen soft and nontender EXTREMITIES: No clubbing cyanosis or edema NEUROLOGICAL: no gross focal deficits appreciated PSYCHOLOGICAL: Appropriate LABORATORY DATA, MICROBIOLOGY: Please see below. IMAGING STUDIES: 07/12/[address] 1. Demineralization, but no visible fracture, compression deformity, avulsion or malalignment. No central canal stenosis. Posterior rib articulations intact. 2. Thoracic aortic aneurysm seen in part. Some of it appears to be larger in diameter than 10/16. Comparison is difficult when comparing to a complete thoracic aortogram. Some small amount of atelectatic change or effusion adjacent to the aorta inferiorly. Lumbar spine CT 1. Grade 1 superior endplate depression of L1 that may be acute. No posterior element involvement. Posterior neural arch shows very slight retropulsion of the few millimeters of the superior aspect of L1 but the AP canal diameter remains widely patent at 12 mm. 2. Small marginal osteophytes at multiple levels and degenerative disc disease greatest at L5-S1 with some progression since the 2018 study. 3. Facet arthropathy lower lumbar spine without spinal central canal stenosis or spondylolysis. Cervical spine CT 1. Diffuse degenerative disc changes without compression fracture, malalignment or other acute finding. CT angios of the chest 1. Ascending arch and descending thoracic aortic aneurysm with maximum AP diameter of the ascending aorta 4.7 cm. This was 0.4 cm on the previous study. The maximum transverse diameter of the descending aorta just before the aortic hiatus of the diaphragm was 5.5 cm, previously 4.6 cm in 2016. No dissection. 2. Atelectatic change adjacent to this ectatic tortuous distal aorta with enhancement of that atelectatic lung. There is small volume of pleural effusion adjacent. Pleural fluid is very low density. No evidence of a leak. 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 Distal thoracic aortic aneurysm extending into the proximal abdominal cavity with aneurysmal dilatation up to 3.6 cm of the abdominal aorta. No dissection. No leak. The infrarenal abdominal aortic aneurysm has normal diameter. It is tortuous and has some calcifications but no dissection. No other significant s oft tissue finding. 2. Grade 1 superior endplate wedge compression deformity of L1 with minimal ret ropulsion about 2 mm of the superior margin of the L1 at the neural canal. No central canal stenosis with over 12 mm AP diameter. Thoracic spine MRI 1. No acute abnormality involving the thoracic spine. 2. Widely patent central canal Lumbar spine MRI [id number] superior endplate compression fracture involving L1, acute/subacute. Mild osseous retropulsion without significant central canal stenosis. DISPOSITION: Home DISCHARGE CONDITION: [Improved and Stable. PROGNOSIS: Fair FOLLOW UP: 1. Follow-up with PCP in 7-10 days. 2. Follow-up with Dr. Flores or [place] 1 weeks after discharge. 3. Pain medication has been to the pharmacy please pickup. 4. If symptoms are returned or worsening please call your primary care provider/orthopedic provider or return to the ER. ACTIVITY: As prior to admission with brace. DIET: As prior to admission TIME SPENT ON DISCHARGE: 50 minutes Vital Signs/I&Os Vital Signs Date Time Temp Pulse Resp B/P (MAP) Pulse Ox O2 Delivery O2 Flow Rate FiO2 07/17/19 09:01 18 Room Air 07/17/19 06:02 98.0 88 123/85 (98) 97 I&O- Last 24 Hours up to 6 AM 07/17/19 06:00 Intake Total 1000 ml Output Total 0 ml Balance 1000 ml Laboratory Data Labs 24H Laboratory Tests 2 07/17/19 06:27: Nucleated Red Blood Cells % (auto) 0.0, Anion Gap 5L, Glomerular Filtration Rate > 60.0, Calcium Level 8.5L CBC/BMP Laboratory Tests 07/17/19 06:27 Discharge Medications Scheduled Bisacodyl (Bisacodyl) 5 Mg Tablet.dr, 10 MG PO DAILY Calcium Citrate (Calcium Citrate) 250 Mg Tablet, 500 MG PO BID, (Reported) Cholecalciferol (Vitamin D3) (Vitamin D3) 1,000 Unit Capsule, 1,000 UNIT PO DA CARLEE, (Reported) Guaifenesin (Mucinex) 600 Mg Tab.er.12h, 600 MG PO BID, (Reported) Lutein (Lutein) 20 Mg Cap, 20 MG PO DAILY, (Reported) Multivit-Min/FA/Lycopen/Lutein (Centrum Silver Tablet) 1 Each Tablet, 1 TAB PO DAILY, (Reported) Nitrofurantoin Macrocrystal (Nitrofurantoin) 100 Mg Capsule, 100 MG PO DAILY, (Reported) Pravastatin Sodium (Pravastatin Sodium) 40 Mg Tab, 20 MG PO DAILY, (Reported) Sennosides/Docusate Sodium (Senna Plus Tablet) 1 Each Tablet, 2 TAB PO BID Timolol Maleate (Timoptic-Xe) 0.5% Evelina.gel, 1 DROP OU QAM, (Reported) Scheduled PRN Cyclobenzaprine HCl (Cyclobenzaprine HCl) 5 Mg Tablet, 5 MG PO TIDP PRN for spasm Hydrocodone/Acetaminophen (Hydrocodone-Acetamin 5-325 mg) 1 Each Tablet, 1-2 TAB PO Q4HP PRN for MODERATE PAIN (PS 5-7) Allergies Coded Allergies: infliximab (Verified Allergy, Severe, anaphylaxis/face swelling, 07/13/19) Penicillins (Verified Allergy, Intermediate, amoxicillin=rash, HIVES /facial swelling, 07/13/19) NSAIDS (Non-Steroidal Anti-Inflamma (Verified Allergy, Unknown, HIVES,RASH ON FACE, 07/13/19) METALS (Verified Adverse Reaction, Intermediate, RASH, REDNESS, 07/13/19) Attending Note I personally saw and evaluated the patient. I agree with the findings and the plan of care documented above in the resident's note. I personally spent 35 mins in counselling the patient and coordinating her discharge. ALVINO ROSS DO Jul 17, 2019 11:36 SAM HARDY MD Jul 17, 2019 12:11
[2019-07-17] MEDS: NITROFURANTOIN (MACROBID) 100 MG CAP PO SCH (12:23)
[2019-07-17] MEDS ORDERED: FLEET OIL RETENTION ENEMA PR PRN (15:00)
[2019-07-17 16:24] VITALS: BP 124/83
[2019-07-17] MEDS: PRAVASTATIN 20 MG TAB PO SCH (21:20)
[2019-07-17 21:28] VITALS: BP 159/90
[2019-07-18] MEDS: NORCO, ANEXSIA 5/325MG TABLET (HYDROcodone/ACETAMINOPHEN) PO PRN ×2 (03:25→08:08)
[2019-07-18 06:05] VITALS: BP 109/76
[2019-07-18 07:02] LABS: HEMATOCRIT 38.6 % (36.0-47.0); HEMOGLOBIN 11.7 g/dl (12.0-15.5); MEAN CORPUSCULAR HEMOGLOBIN 28.2 pg (27.0-33.0); MEAN CORPUSCULAR HGB CONC 30.3 g/dl (32.0-36.5); PLATELET COUNT, AUTOMATED 185 10^3/uL (150-450); RED BLOOD COUNT 4.15 10^6/uL (4.00-5.40); WHITE BLOOD COUNT 4.4 10^3/uL (4.0-10.0)
[2019-07-18 07:26] LABS: BLOOD UREA NITROGEN 16 MG/DL (7-18); CALCIUM LEVEL 9.3 MG/DL (8.8-10.2); CARBON DIOXIDE LEVEL 31 MEQ/L (21-32); CHLORIDE LEVEL 100 MEQ/L (98-107); CREATININE FOR GFR 0.72 MG/DL (0.55-1.30); GLOMERULAR FILTRATION RATE > 60.0 (>39); GLUCOSE, FASTING 78 MG/DL (70-100); POTASSIUM SERUM 4.5 MEQ/L (3.5-5.1); SODIUM LEVEL 135 MEQ/L (136-145)
[2019-07-18] MEDS: VITAMIN D 1,000 INTERNATIONAL UNITS TABLET PO SCH (08:07)
[2019-07-18] MEDS: CALCIUM CARBONATE 500 MG CHEW U/D PO SCH (08:07)
[2019-07-18] MEDS: SENOKOT S TAB PO SCH (08:08)
[2019-07-18] MEDS: MULTIVITAMINS/MINERALS THERAP 1 TAB PO SCH (08:08)
[2019-07-18] MEDS: guaiFENesin ER 600 MG TAB PO SCH (08:08)
[2019-07-18] MEDS: BISACODYL 5 MG TAB PO SCH (08:08)
[2019-07-18] MEDS: ENOXAPARIN 40 MG/0.4 ML SYRINGE (J1650) SC SCH (08:09)
[2019-07-18] MEDS: TIMOLOL XE GFS 0.5% OPHTH 5 ML OU SCH (08:09)
--- NOTE | 2019-07-18 09:49 | IPNPDOC ---
Date Seen The patient was seen on 07/18/19. Progress Note SUBJECTIVE: Discharge was held yesterday for she does not have a bowel movement till late last night. She was seen this morning and states she is ready to go home. She has no complaints today. OBJECTIVE PHYSICAL EXAMINATION: VITAL SIGNS: Please see below. GENERAL: Pleasant 74-year-old female laying in bed awake alert oriented speaking in complete sentences no acute distress HEENT: Moist mucous membranes ABDOMINAL: Abdomen soft and nontender EXTREMITIES: No clubbing cyanosis or edema NEUROLOGICAL: no gross focal deficits appreciated PSYCHOLOGICAL: Appropriate LABORATORY DATA, MICROBIOLOGY: Please see below. IMAGING STUDIES: 07/12/[address] 1. Demineralization, but no visible fracture, compression deformity, avulsion or malalignment. No central canal stenosis. Posterior rib articulations intact. 2. Thoracic aortic aneurysm seen in part. Some of it appears to be larger in diameter than 10/16. Comparison is difficult when comparing to a complete thoracic aortogram. Some small amount of atelectatic change or effusion adjacent to the aorta inferiorly. Lumbar spine CT 1. Grade 1 superior endplate depression of L1 that may be acute. No posterior element involvement. Posterior neural arch shows very slight retropulsion of the few millimeters of the superior aspect of L1 but the AP canal diameter remains widely patent at 12 mm. 2. Small marginal osteophytes at multiple levels and degenerative disc disease greatest at L5-S1 with some progression since the 2018 study. 3. Facet arthropathy lower lumbar spine without spinal central canal stenosis or spondylolysis. Cervical spine CT 1. Diffuse degenerative disc changes without compression fracture, malalignment or other acute finding. CT angios of the chest 1. Ascending arch and descending thoracic aortic aneurysm with maximum AP diameter of the ascending aorta 4.7 cm. This was 0.4 cm on the previous study. The maximum transverse diameter of the descending aorta just before the aortic hiatus of the diaphragm was 5.5 cm, previously 4.6 cm in 2016. No dissection. 2. Atelectatic change adjacent to this ectatic tortuous distal aorta with enhancement of that atelectatic lung. There is small volume of pleural effusion adjacent. Pleural fluid is very low density. No evidence of a leak. 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 Distal thoracic aortic aneurysm extending into the proximal abdominal cavity with aneurysmal dilatation up to 3.6 cm of the abdominal aorta. No dissection. No leak. The infrarenal abdominal aortic aneurysm has normal diameter. It is tortuous and has some calcifications but no dissection. No other significant soft tissue finding. 2. Grade 1 superior endplate wedge compression deformity of L1 with minimal retropulsion about 2 mm of the superior margin of the L1 at the neural canal. No central canal stenosis with over 12 mm AP diameter. Thoracic spine MRI 1. No acute abnormality involving the thoracic spine. 2. Widely patent central canal Lumbar spine MRI [id number] superior endplate compression fracture involving L1, acute/subacute. Mild osseous retropulsion without significant central canal stenosis. ASSESSMENT AND PLAN: This is a 74 year-old female with compression fracture of the L1 lumbar vertebrae PROBLEMS: 1. L1 compression fracture. c/eTylenol, [place] 1-2 tabs for pain control, Senokot S + MOM PRN for constipation. c/w Flexeril 5 mg 3 times a day for spasms. Orthopedic consulted recommend TLSO brace weight bear as tolerated and ambulate as tolerated, out of bed as tolerated. Then follow-up with orthopedic upon discharge. Will check active vitamin D and calcium levels, continue with calcium citrate and vitamin D3, possible will need outpatient DEXA scan to asses her fr ax score to see if she needs Bisphosphate therapy 2. AAA. Monitored outpatient. Currently stable at 5.5 cm. Advised to follow-up with her outpatient provider as scheduled. 3. Hyperlipidemia.c/w pravastatin 4. Glaucoma. Continue with eyedrops as prescribed outpatient. DVT prophylaxis: TEDjeremías DISPOSITION: Discharge. VS, I&O, 24H, [place] Vital Signs/I&O Vital Signs Date Time Temp Pulse Resp B/P (MAP) Pulse Ox O2 Delivery O2 Flow Rate FiO2 07/18/19 08:38 18 Room Air 07/18/19 06:05 96.0 89 109/76 (87) 97 I&O- Last 24 Hours up to 6 AM 07/18/19 05:59 Intake Total 1860 ml Output Total 250 ml Balance 1610 ml Laboratory Data 24H LABS Laboratory Tests 2 07/18/19 06:33: Nucleated Red Blood Cells % (auto) 0.0, Anion Gap 4L, Glomerular Filtration Rate > 60.0, Calcium Level 9.3 CBC/BMP Laboratory Tests 07/18/19 06:33 Attending Note I personally saw and evaluated the patient. I agree with the findings and the plan of care documented above in the resident's note. The patient did not leave yesterday as she could not have a bowel movement till late in th evening and she had been constipated for 5 days. She left this am. ALVINO ROSS DO Jul 18, 2019 09:49 SAM HARDY MD Jul 19, 2019 15:41
== END 2019-07-18 11:05 | disposition home or self-care (01) | DRG 552 ==
LOC: M ED 14:14 → EDBD 14:14 → M ED INP 07-13 00:05 → ENRESERV 07-13 01:27 → M MS5PR 07-13 02:10
PROVIDERS: ADMIT Internal Medicine; ATTEND Internal Medicine Nephrology
DX: S32.011A Stable burst fracture of first lumbar vertebra, initial encounter for closed fracture (principal); N39.0 Urinary tract infection, site not specified; I71.4 Abdominal aortic aneurysm, without rupture; E78.5 Hyperlipidemia, unspecified; K57.30 Diverticulosis of large intestine without perforation or abscess without bleeding; K64.8 Other hemorrhoids; H40.9 Unspecified glaucoma; L40.8 Other psoriasis; W07.XXXA Fall from chair, initial encounter; Y92.009 Unspecified place in unspecified non-institutional (private) residence as the place of occurrence of the external cause; Z79.899 Other long term (current) drug therapy; Z88.0 Allergy status to penicillin; Z88.8 Allergy status to other drugs, medicaments and biological substances; Z88.6 Allergy status to analgesic agent; L40.50 Arthropathic psoriasis, unspecified; K21.9 Gastro-esophageal reflux disease without esophagitis

== ENCOUNTER → 2019-12-18 | Outpatient (CLI) | payer MEDICARE ==
[~2019-12-18] MED LIST changes: +BISAC5TA PO; +CALC250T PO; +CENT1TAB PO; +CYCL5TAB PO; +HYDR-3715 PO; +MUCI600T31 PO; +NITR-67 PO; +NITR1CAP26 PO; +SENN-52 PO; +TIMO0.5S3 OU; +VITA100054 PO
== END ==
LOC: M LABSMTC 13:11
PROVIDERS: ATTEND Family Medicine
DX: Z03.818 Encounter for observation for suspected exposure to other biological agents ruled out (principal); Z11.59 Encounter for screening for other viral diseases
CPT/HCPCS: C9803; U0003

== ENCOUNTER → 2020-12-16 | Outpatient (CLI) | payer MEDICARE ==
[~2020-12-16] MED LIST changes: +AMLO1TAB24 PO; -AMLO5TAB6 PO; +OMEP40CA4 PO; -OMEP40CA97 PO
--- NOTE | 2020-12-16 09:08 | REP ---
INDICATION: AAA COMPARISON: 07/12/2019 TECHNIQUE: Axial noncontrast images from the lung bases to the pubic symphysis with coronal and sagittal reformations. This CT examination was performed using the following dose reduction techniques: Automated exposure control, adjustment of mA and/or kv according to the patient's size, and use of iterative reconstruction technique. FINDINGS: Lung bases are clear. Visualized heart and pericardium normal. Liver, spleen, pancreas, gallbladder, left adrenal gland and right kidney are normal. Left kidney includes stable hypodensities consistent with cysts. The enteric system is unremarkable and without obstruction or acute inflammatory process. Colonic and sigmoid diverticulosis noted without acute diverticulitis. Pelvis demonstrates normal bladder and evidence for prior hysterectomy.. No ascites. No free air. No adenopathy. No focal inflammatory stranding. Musculoskeletal structures are intact and without acute osseous abnormality. Patient is status post thoracoabdominal aortic aneurysm stenting and stenting of the right common iliac artery. Abdominal aorta is stable in diameter without obvious suggestion for endoleak or tyrone aortic inflammatory change/fluid to suggest rupture. IMPRESSION: 1. Status post aortic and separate right common iliac artery stenting. No evidence for endoleak, extravasation, or rupture. 2. Chronic nonacute findings as noted above. 3. No ascites, focal inflammatory stranding, free air or adenopathy. <Electronically signed by Michael Werner > 12/16/20 [id number]
== END ==
LOC: M PLAIMG 07:46
PROVIDERS: ATTEND Surgery Vascular Surgery
DX: I71.4 Abdominal aortic aneurysm, without rupture (principal)

== ENCOUNTER → 2020-12-24 | Outpatient (CLI) | payer MEDICARE ==
--- NOTE | 2020-12-24 12:00 | DEXAMM ---
INDICATION: OSTEOPENIA. COMPARISON: 04/24/2017 as well as other prior exams. TECHNIQUE: Bone density was measured using dual-energy x-ray absorptiometry (DEXA). FINDINGS: AP SPINE L1-L4 BMD 1.144 g/cm2 Young Adult T-Score -0.4 Age Matched Z-Score 1.3. LT FEMUR, TOTAL BMD 0.776 g/cm2 Young Adult T-Score -1.8 Age Matched Z-Score -0.1. LT NECK BMD 0.721 g/cm2 Young Adult T-Score -2.3 Age Matched Z-Score -0.4. RT FEMUR, TOTAL BMD 0.827 g/cm2 Young Adult T-Score -1.4 Age Matched Z-Score 0.3. RT NECK BMD 0.752 g/cm2 Young Adult T-Score -2.1 Age Matched Z-Score -0.2. IMPRESSION: There is normal bone density of the spine. There is low bone density of the left hip. There is low bone density of the right hip. The density of the spine has increased 5.8% since the initial exam on 03/27/2001. The density of the spine increased 4.7% since most recent exam on 04/24/2017. The density of the left hip has decreased 3.1% since initial exam on 03/27/2001. The density of the left hip has decreased 1.4% since most recent exam on 04/24/2017. The density of the right hip has decreased 0.5% since the initial exam on 03/27/2001. The density of the right hip has decreased 2.5% since the most recent exam on 04/24/2017. FOLLOW-UP: Recommendation for the next bone density exam: 2 years. <Electronically signed by Henrry Orozco > 12/24/20 [id number]
== END ==
LOC: M WHC 09:14
PROVIDERS: ATTEND Nurse Practitioner Adult Health
DX: M81.0 Age-related osteoporosis without current pathological fracture (principal)

== ENCOUNTER → 2021-03-18 | Outpatient (CLI) | payer MEDICARE ==
--- NOTE | 2021-03-18 13:36 | REP ---
INDICATION: CONTUSION. COMPARISON: None. TECHNIQUE: Four views FINDINGS: There is advanced asymmetric intra digital joint space narrowing involving the D IP joints of the 2nd and 3rd digits. There is medial subluxation of the D IP joints of the 2nd and 3rd digits. There is a similar finding to a lesser degree seen involving the D IP joint of the 5th digit without subluxation. Prominent marginal osteophytosis is seen affecting those aforementioned D IP joints. There is evidence to suggest a fracture of the distal radius and ulnar styloid difficult to evaluate on this hand exam IMPRESSION: Chronic changes involving the hand as described above. Four view wrist series is recommended. <Electronically signed by Arnold Walsh > 03/18/21 [id number]
--- NOTE | 2021-03-18 13:39 | REP ---
INDICATION: CONTUSION. COMPARISON: None. TECHNIQUE: Four views. FINDINGS: There is a slightly comminuted impacted distal radial fracture and a minimally displaced fracture through the base of the ulnar styloid process IMPRESSION: As above <Electronically signed by Arnold Walsh > 03/18/21 [id number]
== END ==
LOC: M WUC 13:03
PROVIDERS: ATTEND Physician Assistant
DX: S52.592A Other fractures of lower end of left radius, initial encounter for closed fracture (principal); S52.612A Displaced fracture of left ulna styloid process, initial encounter for closed fracture; X58.XXXA Exposure to other specified factors, initial encounter; Y92.9 Unspecified place or not applicable; Y93.9 Activity, unspecified; Y99.9 Unspecified external cause status; S60.222A Contusion of left hand, initial encounter; S60.212A Contusion of left wrist, initial encounter

== ENCOUNTER → 2021-07-05 | Outpatient (CLI) | payer MEDICARE ==
[~2021-07-05] MED LIST changes: +ISOVUE-370 76% 100ML VIAL As Ordered ONE
== END ==
LOC: M RAD 08:47
PROVIDERS: ATTEND Surgery Vascular Surgery
DX: I71.2 Thoracic aortic aneurysm, without rupture (principal); I77.72 Dissection of iliac artery; I71.4 Abdominal aortic aneurysm, without rupture; Z95.828 Presence of other vascular implants and grafts; I74.11 Embolism and thrombosis of thoracic aorta
CPT/HCPCS: 71275; 74174; Q9967

== ENCOUNTER → 2021-10-14 | Outpatient (CLI) | payer MEDICARE ==
[~2021-10-14] MED LIST changes: +ALEN70TA82 PO; +C-101TAB PO; +CALCCAP4 PO; +CHLO25TA PO; +CLOP75TA2 PO; +FELO5TAB26 PO; -ISOVUE-370 76% 100ML VIAL As Ordered ONE; +LATA0.0015 OP; +POTA-141 PO; +PRAV20TA2 PO; +TIMO0.5S42 OP; +VITATAB26 PO; +ZYRT10TA12 PO
== END ==
LOC: M LABSMTC 09:50
PROVIDERS: ATTEND Anesthesiology
DX: Z01.812 Encounter for preprocedural laboratory examination (principal); Z20.822 Contact with and (suspected) exposure to COVID-19

== ENCOUNTER 2021-10-19 12:11 | Day surgery (SDC) | payer MEDICARE ==
[~2021-10-19] VITALS: Ht 157.5 cm; Wt 57.1 kg
[~2021-10-19 12:11] MED LIST changes: +NS 1,000 ML IV ONE
[2021-10-19] MEDS ORDERED: propofoL 200 MG/20 ML VIAL As Ordered ONE (14:41)
[2021-10-19] MEDS ORDERED: LIDOCAINE 2% MDV 20ML VIAL As Ordered ONE (14:41)
[2021-10-19 15:06] VITALS: BP 151/72
== END 2021-10-19 15:06 | disposition home or self-care (01) ==
LOC: M OPP 12:11
PROVIDERS: ATTEND Internal Medicine Gastroenterology
DX: K51.30 Ulcerative (chronic) rectosigmoiditis without complications (principal); D12.6 Benign neoplasm of colon, unspecified; D12.8 Benign neoplasm of rectum; K64.0 First degree hemorrhoids; K57.30 Diverticulosis of large intestine without perforation or abscess without bleeding; K63.89 Other specified diseases of intestine; K21.9 Gastro-esophageal reflux disease without esophagitis; M19.90 Unspecified osteoarthritis, unspecified site; Z88.0 Allergy status to penicillin; Z88.6 Allergy status to analgesic agent; Z88.8 Allergy status to other drugs, medicaments and biological substances; Z79.899 Other long term (current) drug therapy

== ENCOUNTER → 2021-12-20 | Outpatient (CLI) | payer MEDICARE ==
[~2021-12-20] MED LIST changes: -NS 1,000 ML IV ONE
== END ==
LOC: M CARPUL 09:46
PROVIDERS: ATTEND Internal Medicine Pulmonary Disease
DX: R06.00 Dyspnea, unspecified (principal); J84.9 Interstitial pulmonary disease, unspecified; E05.90 Thyrotoxicosis, unspecified without thyrotoxic crisis or storm; I31.3 Pericardial effusion (noninflammatory); I70.0 Atherosclerosis of aorta; I25.10 Atherosclerotic heart disease of native coronary artery without angina pectoris; I71.2 Thoracic aortic aneurysm, without rupture; J98.4 Other disorders of lung; Z95.828 Presence of other vascular implants and grafts

== ENCOUNTER → 2022-03-31 | Outpatient (REF) | payer MEDICARE | LOC: M LAB REF 12:18 | PROVIDERS: ATTEND Nurse Practitioner Adult Health | DX: N39.0 Urinary tract infection, site not specified (principal) ==

== ENCOUNTER 2022-04-07 21:45 | Inpatient (IN) | payer MEDICARE ==
[~2022-04-07] VITALS: Ht 157.5 cm; Wt 58.2 kg
[~2022-04-07 21:45] MED LIST changes: +PRAVASTATIN 20 MG TAB PO SCH
[2022-04-07] MEDS ORDERED: CEPH500C PO (22:27)
[2022-04-07] MEDS ORDERED: PRESCAP PO (22:27)
[2022-04-07] MEDS ORDERED: LABETALOL 100MG/20ML VIAL IV STA (22:45)
[2022-04-07 22:50] LABS: BASO % 0.6 % (0.0-1.0); EOS # 0.1 10^3/uL (0.0-0.5); EOS % 1.7 % (0.0-3.0); HEMATOCRIT 38.8 % (36.0-47.0); HEMOGLOBIN 12.5 g/dl (12.0-15.5); LYMPH # 1.2 10^3/uL (1.5-5.0); LYMPH % 16.3 % (24.0-44.0); MEAN CORPUSCULAR HEMOGLOBIN 28.6 pg (27.0-33.0); MEAN CORPUSCULAR HGB CONC 32.2 g/dl (32.0-36.5); MEAN CORPUSCULAR VOLUME 88.8 fl (80.0-96.0); MONO # 0.7 10^3/uL (0.0-0.8); MONO % 9.2 % (2.0-8.0); NEUTROPHILS # 5.1 10^3/uL (1.5-8.5); NEUTROPHILS % 71.9 % (36.0-66.0); PLATELET COUNT, AUTOMATED 218 10^3/uL (150-450); RED BLOOD COUNT 4.37 10^6/uL (4.00-5.40)
[2022-04-07] MEDS ORDERED: ISOVUE-370 76% 100ML VIAL As Ordered ONE (22:53)
[2022-04-07 23:05] VITALS: BP 197/97
[2022-04-07 23:23] LABS: BLOOD UREA NITROGEN 17 MG/DL (7-18); CALCIUM LEVEL 9.5 MG/DL (8.8-10.2); CARBON DIOXIDE LEVEL 29 MEQ/L (21-32); CHLORIDE LEVEL 97 MEQ/L (98-107); CREATININE FOR GFR 0.74 MG/DL (0.55-1.30); GLOMERULAR FILTRATION RATE > 60.0 (>39); GLUCOSE, FASTING 109 MG/DL (70-100); POTASSIUM SERUM 4.1 MEQ/L (3.5-5.1); SODIUM LEVEL 132 MEQ/L (136-145)
[2022-04-07 23:26] LABS: CK-MB VALUE MASS 1.1 NG/ML (<3.6); MB/CK RELATIVE INDEX 1.43 (< OR =4)
[2022-04-08 00:36] LABS: RSV AMPLIFICATION NEGATIVE (NEGATIVE)
[2022-04-08] MEDS ORDERED: HOME MED LIST COMPLETE! XX SCH (01:05)
[2022-04-08] MEDS ORDERED: cefTRIAXone SOD 1 GM in D5W MINI-BAG PLUS 50 ML IV SCH (02:00)
[2022-04-08 08:12] LABS: BASO # 0.1 10^3/uL (0.0-0.2); BASO % 0.9 % (0.0-1.0); EOS # 0.1 10^3/uL (0.0-0.5); EOS % 1.2 % (0.0-3.0); HEMATOCRIT 37.7 % (36.0-47.0); HEMOGLOBIN 11.9 g/dl (12.0-15.5); LYMPH # 1.2 10^3/uL (1.5-5.0); LYMPH % 20.1 % (24.0-44.0); MEAN CORPUSCULAR HEMOGLOBIN 28.1 pg (27.0-33.0); MEAN CORPUSCULAR HGB CONC 31.6 g/dl (32.0-36.5); MEAN CORPUSCULAR VOLUME 88.9 fl (80.0-96.0); MONO # 0.6 10^3/uL (0.0-0.8); MONO % 9.4 % (2.0-8.0); NEUTROPHILS % 68.1 % (36.0-66.0); PLATELET COUNT, AUTOMATED 211 10^3/uL (150-450); RED BLOOD COUNT 4.24 10^6/uL (4.00-5.40); WHITE BLOOD COUNT 5.8 10^3/uL (4.0-10.0)
[2022-04-08 08:56] LABS: BLOOD UREA NITROGEN 13 MG/DL (7-18); CALCIUM LEVEL 9.1 MG/DL (8.8-10.2); CARBON DIOXIDE LEVEL 29 MEQ/L (21-32); CHLORIDE LEVEL 99 MEQ/L (98-107); CHOLESTEROL LEVEL 145 MG/DL (<200); CHOLESTEROL RISK RATIO 2.788 (<5); CREATININE FOR GFR 0.75 MG/DL (0.55-1.30); GLOMERULAR FILTRATION RATE > 60.0 (>39); GLUCOSE, FASTING 97 MG/DL (70-100); HDL CHOLESTEROL 52 MG/DL (>40); LDL CHOLESTEROL 61 MG/DL (<100); MAGNESIUM LEVEL 2.2 MG/DL (1.8-2.4); NON-HDL-C 93 MG/DL; POTASSIUM SERUM 4.2 MEQ/L (3.5-5.1); SODIUM LEVEL 133 MEQ/L (136-145); TRIGLYCERIDES LEVEL 158 MG/DL (<150)
[2022-04-08] MEDS ORDERED: CETIRIZINE (ZyrTEC) 10 MG TAB PO SCH (09:00)
[2022-04-08] MEDS ORDERED: CALCIUM/VITAMIN D 500 MG TAB PO SCH (09:00)
[2022-04-08] MEDS ORDERED: ENOXAPARIN 40MG/0.4ML SYRINGE (J1650 PER 10MG) SC SCH (09:00)
[2022-04-08] MEDS ORDERED: OCUVITE 1 TAB PO SCH (09:00)
[2022-04-08] MEDS ORDERED: MULTIVITAMINS/MINERALS THERAP 1 TAB PO SCH (09:00)
[2022-04-08] MEDS ORDERED: TIMOLOL XE GFS 0.5% OPHTH 5 ML OU SCH (09:00)
[2022-04-08] MEDS ORDERED: NS 1,000 ML IV SCH (11:40)
[2022-04-08] MEDS ORDERED: PRAV40TA2 PO (14:40)
[2022-04-08] MEDS ORDERED: CLOP75TA2 PO (14:40)
[2022-04-08 15:45] VITALS: BP 164/81
[2022-04-08] MEDS ORDERED: VITAMIN D 1,000 INTERNATIONAL UNITS TABLET PO SCH (21:00)
[2022-04-09] MEDS ORDERED: CLOPIDOGREL 75 MG TAB PO SCH (09:00)
[2022-04-10 11:18] LABS: VITAMIN B12 LEVEL 1596 PG/ML (247-911)
== END 2022-04-08 16:00 | disposition home or self-care (01) | DRG 69 ==
LOC: M ED 21:45 → M ED INP 23:57
PROVIDERS: ADMIT Internal Medicine; ATTEND Internal Medicine
DX: G45.9 Transient cerebral ischemic attack, unspecified (principal); E78.5 Hyperlipidemia, unspecified; I10 Essential (primary) hypertension; K21.9 Gastro-esophageal reflux disease without esophagitis; Z95.828 Presence of other vascular implants and grafts; G43.909 Migraine, unspecified, not intractable, without status migrainosus; Z79.2 Long term (current) use of antibiotics; H40.9 Unspecified glaucoma; L40.50 Arthropathic psoriasis, unspecified; Z79.899 Other long term (current) drug therapy; Z79.02 Long term (current) use of antithrombotics/antiplatelets; Z88.0 Allergy status to penicillin; Z88.6 Allergy status to analgesic agent; Z88.8 Allergy status to other drugs, medicaments and biological substances; Z91.048 Other nonmedicinal substance allergy status; Z90.79 Acquired absence of other genital organ(s); Z90.49 Acquired absence of other specified parts of digestive tract; I48.0 Paroxysmal atrial fibrillation; R20.0 Anesthesia of skin

== ENCOUNTER → 2022-04-25 | Outpatient (REF) | payer MEDICARE ==
[~2022-04-25] MED LIST changes: +CEPH500C PO; -PRAVASTATIN 20 MG TAB PO SCH; +PRESCAP PO
== END ==
LOC: M LAB REF 16:38
PROVIDERS: ATTEND Nurse Practitioner Adult Health
DX: N39.0 Urinary tract infection, site not specified (principal)

== ENCOUNTER → 2022-05-29 | Outpatient (REF) | payer MEDICARE | LOC: M LAB REF 16:17 | PROVIDERS: ATTEND Family Medicine | DX: N39.0 Urinary tract infection, site not specified (principal) ==

== ENCOUNTER → 2022-06-30 | Outpatient (CLI) | payer MEDICARE | LOC: M CARPUL 09:56 | PROVIDERS: ATTEND Nurse Practitioner Adult Health | DX: G45.9 Transient cerebral ischemic attack, unspecified (principal) ==

== ENCOUNTER → 2022-08-23 | Outpatient (CLI) | payer MEDICARE ==
[~2022-08-23] MED LIST changes: +ISOVUE-370 76% 100ML VIAL As Ordered ONE
== END ==
LOC: M RAD 08:19
PROVIDERS: ATTEND Physician Assistant
DX: I71.20 Thoracic aortic aneurysm, without rupture, unspecified (principal); Z48.812 Encounter for surgical aftercare following surgery on the circulatory system
CPT/HCPCS: 71275; 74174; Q9967

== ENCOUNTER 2022-10-04 22:08 | Observation (INO) | payer MEDICARE ==
[~2022-10-04] VITALS: Ht 157.5 cm; Wt 58.5 kg
[~2022-10-04 22:08] MED LIST changes: -ISOVUE-370 76% 100ML VIAL As Ordered ONE; -LATA0.0015 OP; +LATA0.0015 OU
[2022-10-04] MEDS ORDERED: VALS1TAB67 PO (22:23)
[2022-10-04] MEDS ORDERED: MULT-123 PO (22:23)
[2022-10-04] MEDS ORDERED: CLIN150C17 PO (22:23)
[2022-10-04] MEDS ORDERED: CALC250T PO (22:23)
[2022-10-04] MEDS ORDERED: LABETALOL 100MG/20ML VIAL IV STA (22:52)
[2022-10-04] MEDS ORDERED: ISOVUE-370 76% 100ML VIAL As Ordered ONE (22:56)
[2022-10-04 23:24] LABS: BASO % 0.7 % (0.0-1.0); EOS # 0.1 10^3/uL (0.0-0.5); EOS % 1.3 % (0.0-3.0); HEMATOCRIT 39.5 % (36.0-47.0); HEMOGLOBIN 12.6 g/dl (12.0-15.5); LYMPH # 1.1 10^3/uL (1.5-5.0); MEAN CORPUSCULAR HEMOGLOBIN 27.9 pg (27.0-33.0); MEAN CORPUSCULAR HGB CONC 31.9 g/dl (32.0-36.5); MEAN CORPUSCULAR VOLUME 87.4 fl (80.0-96.0); MONO # 0.6 10^3/uL (0.0-0.8); MONO % 11.2 % (2.0-8.0); NEUTROPHILS # 3.6 10^3/uL (1.5-8.5); NEUTROPHILS % 66.6 % (36.0-66.0); PLATELET COUNT, AUTOMATED 205 10^3/uL (150-450); RED BLOOD COUNT 4.52 10^6/uL (4.00-5.40); WHITE BLOOD COUNT 5.5 10^3/uL (4.0-10.0)
[2022-10-04 23:45] LABS: ALBUMIN 3.6 G/DL (3.2-5.2); ALKALINE PHOSPHATASE 146 U/L (46-116); ALT/SGPT 12 U/L (7.0-40); AST/SGOT 24 U/L (<34); BILIRUBIN,DIRECT 0.2 MG/DL (<0.4); BILIRUBIN,TOTAL 0.5 MG/DL (0.3-1.2); BLOOD UREA NITROGEN 10 MG/DL (9-23); CALCIUM LEVEL 9.2 MG/DL (8.3-10.6); CARBON DIOXIDE LEVEL 30 MMOL/L (20-31); CHLORIDE LEVEL 96 MMOL/L (98-107); CK-MB VALUE MASS < 1.0 NG/ML (<3.6); CREATININE FOR GFR 0.62 MG/DL (0.55-1.30); GLOMERULAR FILTRATION RATE > 60.0 (>39); GLUCOSE, FASTING 90 MG/DL (74-106); POTASSIUM SERUM 4.9 MMOL/L (3.5-5.1); SODIUM LEVEL 130 MMOL/L (136-145); TOTAL PROTEIN 7.7 G/DL (5.7-8.2)
[2022-10-04 23:47] LABS: THYROID STIMULATING HORMONE 2.346 uIU/ML (0.55-4.78)
[2022-10-04 23:51] LABS: CPK CREATINE PHOSPHOKINASE 57 U/L (34-145); MB/CK RELATIVE INDEX 1.75 (< OR =4)
[2022-10-04 23:58] LABS: INR 0.96
[2022-10-05 00:22] LABS: RSV AMPLIFICATION NEGATIVE (NEGATIVE)
[2022-10-05] MEDS ORDERED: MOM 30ML SUSPENSION UDC PO PRN (01:45)
[2022-10-05] MEDS ORDERED: hydrALAZINE 20MG/ML 1ML VIAL IV PRN (01:45)
[2022-10-05] MEDS ORDERED: CALCTAB54 PO (02:50)
[2022-10-05] MEDS ORDERED: OCUVTAB4 PO (02:50)
[2022-10-05] MEDS ORDERED: VITMTA PO (02:50)
[2022-10-05] MEDS ORDERED: AZEL1SPR3 (02:50)
[2022-10-05] MEDS ORDERED: CLOP75TA2 PO (02:50)
[2022-10-05] MEDS ORDERED: PRAV40TA2 PO (02:50)
[2022-10-05] MEDS ORDERED: C-101TAB3 PO (02:50)
[2022-10-05] MEDS ORDERED: HOME MED LIST COMPLETE! XX SCH (02:50)
[2022-10-05 05:53] LABS: HEMATOCRIT 37.4 % (36.0-47.0); HEMOGLOBIN 11.9 g/dl (12.0-15.5); MEAN CORPUSCULAR HEMOGLOBIN 27.9 pg (27.0-33.0); MEAN CORPUSCULAR HGB CONC 31.8 g/dl (32.0-36.5); MEAN CORPUSCULAR VOLUME 87.8 fl (80.0-96.0); PLATELET COUNT, AUTOMATED 180 10^3/uL (150-450); RED BLOOD COUNT 4.26 10^6/uL (4.00-5.40); WHITE BLOOD COUNT 5.2 10^3/uL (4.0-10.0)
[2022-10-05 06:25] LABS: ALBUMIN 3.4 G/DL (3.2-5.2); ALKALINE PHOSPHATASE 124 U/L (46-116); ALT/SGPT < 9 U/L (7.0-40); AST/SGOT 19 U/L (<34); BILIRUBIN,TOTAL 0.5 MG/DL (0.3-1.2); BLOOD UREA NITROGEN 8 MG/DL (9-23); CARBON DIOXIDE LEVEL 30 MMOL/L (20-31); CHLORIDE LEVEL 97 MMOL/L (98-107); CREATININE FOR GFR 0.66 MG/DL (0.55-1.30); GLOMERULAR FILTRATION RATE > 60.0 (>39); GLUCOSE, FASTING 81 MG/DL (74-106); POTASSIUM SERUM 4.2 MMOL/L (3.5-5.1); SODIUM LEVEL 132 MMOL/L (136-145); TOTAL PROTEIN 7.2 G/DL (5.7-8.2)
[2022-10-05] MEDS ORDERED: DOCUSATE SODIUM 100MG CAPSULE PO SCH (09:00)
[2022-10-05] MEDS ORDERED: CETIRIZINE (ZyrTEC) 10 MG TAB PO SCH (09:00)
[2022-10-05] MEDS ORDERED: amLODIPine 5 MG TAB PO SCH ×2 (09:00→12:00)
[2022-10-05] MEDS ORDERED: TIMOLOL XE GFS 0.5% OPHTH 5 ML OU SCH (09:00)
[2022-10-05] MEDS ORDERED: ENOXAPARIN 40MG/0.4ML SYRINGE (J1650 PER 10MG) SC SCH (09:00)
[2022-10-05] MEDS ORDERED: CLOPIDOGREL 75 MG TAB PO SCH (09:00)
[2022-10-05 12:20] VITALS: BP 146/76
[2022-10-05 12:41] VITALS: BP 146/76
[2022-10-05] MEDS ORDERED: AMLO1TAB24 PO (13:40)
[2022-10-05 14:22] VITALS: BP 136/74
[2022-10-05] MEDS ORDERED: ASPI81CH33 PO (16:14)
[2022-10-05] MEDS ORDERED: PRAVASTATIN 20 MG TAB PO SCH (21:00)
[2022-10-05] MEDS ORDERED: VALSARTAN 80 MG TAB (DIOVAN) PO SCH (21:00)
[2022-10-06] MEDS ORDERED: amLODIPine 5 MG TAB PO SCH (09:00)
== END 2022-10-05 15:13 | disposition home or self-care (01) ==
LOC: M ED 22:08 → M ED INP 10-05 01:44 → INTOOBSV 10-05 01:44 → M PCU 10-05 12:20
PROVIDERS: ADMIT Family Medicine; ATTEND Family Medicine
DX: I16.0 Hypertensive urgency (principal); K51.90 Ulcerative colitis, unspecified, without complications; K57.90 Diverticulosis of intestine, part unspecified, without perforation or abscess without bleeding; K21.9 Gastro-esophageal reflux disease without esophagitis; I71.40 Abdominal aortic aneurysm, without rupture, unspecified; I10 Essential (primary) hypertension; E78.5 Hyperlipidemia, unspecified; E26.01 Conn's syndrome; Z79.899 Other long term (current) drug therapy; Z88.8 Allergy status to other drugs, medicaments and biological substances
CPT/HCPCS: 36415; 70450; 70496; 70498; 70551; 71045; 80047; 80048; 80053; 80076; 82088; 82550; 82553; 83880; 83930; 84244; 84443; 84484; 85025; 85027; 85610; 87631; 93005; 93041; 94760; 96372; 96374; 96375; 97116; 97161; 97530; 99285; G0378; J0360; J1650; Q9967

== ENCOUNTER → 2022-10-23 | Outpatient (REF) | payer MEDICARE ==
[~2022-10-23] MED LIST changes: +ASPI81CH33 PO; +AZEL1SPR3; +C-101TAB3 PO; +CALCTAB54 PO; +CLIN150C17 PO; +MULT-123 PO; +OCUVTAB4 PO; +VALS1TAB67 PO; +VITMTA PO
== END ==
LOC: M LAB REF 13:58
PROVIDERS: ATTEND Internal Medicine Cardiovascular Disease
DX: I10 Essential (primary) hypertension (principal)

== ENCOUNTER 2022-11-08 22:03 | Emergency (ER) | payer MEDICARE ==
[~2022-11-08] VITALS: Ht 157.5 cm; Wt 58.9 kg
[2022-11-09 01:41] LABS: BASO # 0.1 10^3/uL (0.0-0.2); BASO % 0.8 % (0.0-1.0); EOS # 0.1 10^3/uL (0.0-0.5); EOS % 1.2 % (0.0-3.0); HEMATOCRIT 36.5 % (36.0-47.0); HEMOGLOBIN 11.8 g/dl (12.0-15.5); LYMPH # 0.9 10^3/uL (1.5-5.0); LYMPH % 13.2 % (24.0-44.0); MEAN CORPUSCULAR HEMOGLOBIN 28.4 pg (27.0-33.0); MEAN CORPUSCULAR HGB CONC 32.3 g/dl (32.0-36.5); MEAN CORPUSCULAR VOLUME 87.7 fl (80.0-96.0); MONO # 0.5 10^3/uL (0.0-0.8); MONO % 8.2 % (2.0-8.0); NEUTROPHILS % 76.4 % (36.0-66.0); PLATELET COUNT, AUTOMATED 187 10^3/uL (150-450); RED BLOOD COUNT 4.16 10^6/uL (4.00-5.40); WHITE BLOOD COUNT 6.6 10^3/uL (4.0-10.0)
[2022-11-09 01:55] LABS: BLOOD UREA NITROGEN 15 MG/DL (9-23); CALCIUM LEVEL 9.3 MG/DL (8.3-10.6); CARBON DIOXIDE LEVEL 26 MMOL/L (20-31); CHLORIDE LEVEL 99 MMOL/L (98-107); CK-MB VALUE MASS < 1.0 NG/ML (<3.6); CPK CREATINE PHOSPHOKINASE 49 U/L (34-145); CREATININE FOR GFR 0.61 MG/DL (0.55-1.30); GLOMERULAR FILTRATION RATE > 60.0 (>39); GLUCOSE, FASTING 105 MG/DL (74-106); MAGNESIUM LEVEL 1.9 MG/DL (1.8-2.4); MB/CK RELATIVE INDEX 2.04 (< OR =4); POTASSIUM SERUM 4.5 MMOL/L (3.5-5.1); SODIUM LEVEL 134 MMOL/L (136-145)
[2022-11-09 02:00] VITALS: BP 128/62
== END 2022-11-09 02:21 | disposition home or self-care (01) ==
LOC: M ED 22:03
DX: I10 Essential (primary) hypertension (principal); Z95.828 Presence of other vascular implants and grafts; K21.9 Gastro-esophageal reflux disease without esophagitis; K57.32 Diverticulitis of large intestine without perforation or abscess without bleeding; L40.50 Arthropathic psoriasis, unspecified; Z79.899 Other long term (current) drug therapy; Z88.6 Allergy status to analgesic agent; Z88.0 Allergy status to penicillin; Z88.8 Allergy status to other drugs, medicaments and biological substances; Z91.89 Other specified personal risk factors, not elsewhere classified

== ENCOUNTER → 2023-04-19 | Outpatient (CLI) | payer MEDICARE ==
[2023-04-19 15:07] LABS: BASO # 0.1 10^3/uL (0.0-0.2); EOS # 0.1 10^3/uL (0.0-0.5); EOS % 1.6 % (0.0-3.0); HEMATOCRIT 40.7 % (36.0-47.0); HEMOGLOBIN 12.9 g/dl (12.0-15.5); LYMPH # 1.4 10^3/uL (1.5-5.0); LYMPH % 17.2 % (24.0-44.0); MEAN CORPUSCULAR HEMOGLOBIN 28.9 pg (27.0-33.0); MEAN CORPUSCULAR HGB CONC 31.7 g/dl (32.0-36.5); MEAN CORPUSCULAR VOLUME 91.1 fl (80.0-96.0); MONO # 0.6 10^3/uL (0.0-0.8); MONO % 7.4 % (2.0-8.0); NEUTROPHILS # 5.9 10^3/uL (1.5-8.5); NEUTROPHILS % 72.4 % (36.0-66.0); PLATELET COUNT, AUTOMATED 228 10^3/uL (150-450); RED BLOOD COUNT 4.47 10^6/uL (4.00-5.40); WHITE BLOOD COUNT 8.1 10^3/uL (4.0-10.0)
[2023-04-19 15:56] LABS: ERYTHROCYTE SEDIMENTATION RATE 61 mm/hr (0-30)
== END ==
LOC: M LAB 13:32
PROVIDERS: ATTEND Optometrist
DX: M31.6 Other giant cell arteritis (principal)

== ENCOUNTER 2023-07-10 09:21 | Day surgery (SDC) | payer MEDICARE ==
[~2023-07-10] VITALS: Ht 157.5 cm; Wt 57.6 kg
[~2023-07-10 09:21] MED LIST changes: +BSS PLUS IR ONE; +CYCLOPENTOLATE 1% OPHTH SOLN 2ML BTL OS SCH; +EPINEPHRINE IR ONE; +ISTA0.5S OU; +LATA1DRO OU; +LIDOCAINE 1% SDV 5ML VIAL As Ordered ONE; +METO1TAB32 PO; +MOXIFLOXACIN 0.6MG/0.4ML INTRAOCULAR SYRINGE As Ordered ONE; -NITR1CAP26 PO; +NITR25CA2 PO; +OFLOXACIN 0.3 % (OCUFLOX) OPTH SOL 5ML OS SCH; +PHENYLEPHRINE 2.5% OPHTH SOL 2ML OS SCH; +PROPARACAINE 0.5% OPHTH SOL 15ML OS ONE; +TROPICAMIDE 1% OPHTH SOLN 15ML OS SCH
[2023-07-10] MEDS ORDERED: BSS IRR 500ML/OMIDRIA 4ML IRR BAG (OR ONLY) As Ordered ONE (10:18)
[2023-07-10] MEDS ORDERED: MIDAZOLAM INJ 2MG/2ML VIAL As Ordered ONE (10:26)
[2023-07-10 13:23] VITALS: BP 132/67; TEMP 97.6; O2SAT 98
== END 2023-07-10 13:33 | disposition home or self-care (01) ==
LOC: M SDC 09:21
PROVIDERS: ATTEND Ophthalmology
DX: H25.12 Age-related nuclear cataract, left eye (principal); I48.91 Unspecified atrial fibrillation; I10 Essential (primary) hypertension; K57.92 Diverticulitis of intestine, part unspecified, without perforation or abscess without bleeding; G43.909 Migraine, unspecified, not intractable, without status migrainosus; Z88.8 Allergy status to other drugs, medicaments and biological substances; Z88.0 Allergy status to penicillin; Z79.02 Long term (current) use of antithrombotics/antiplatelets; Z79.899 Other long term (current) drug therapy
CPT/HCPCS: 66984; J1097; J2250; V2632

== ENCOUNTER → 2023-08-09 | Outpatient (REF) | payer MEDICARE ==
[~2023-08-09] MED LIST changes: -BSS PLUS IR ONE; -CYCLOPENTOLATE 1% OPHTH SOLN 2ML BTL OS SCH; -EPINEPHRINE IR ONE; -LIDOCAINE 1% SDV 5ML VIAL As Ordered ONE; -MOXIFLOXACIN 0.6MG/0.4ML INTRAOCULAR SYRINGE As Ordered ONE; -OFLOXACIN 0.3 % (OCUFLOX) OPTH SOL 5ML OS SCH; -PHENYLEPHRINE 2.5% OPHTH SOL 2ML OS SCH; -PROPARACAINE 0.5% OPHTH SOL 15ML OS ONE; -TROPICAMIDE 1% OPHTH SOLN 15ML OS SCH
== END ==
LOC: M LAB REF 16:10
PROVIDERS: ATTEND Nurse Practitioner Family
DX: N39.0 Urinary tract infection, site not specified (principal)

== ENCOUNTER 2023-08-21 10:09 | Day surgery (SDC) | payer MEDICARE ==
[~2023-08-21] VITALS: Ht 157.5 cm; Wt 57.3 kg
[~2023-08-21 10:09] MED LIST changes: +MIDAZOLAM INJ 2MG/2ML VIAL As Ordered ONE; +fentaNYL 100 MCG/2 ML INJECTION As Ordered ONE
[2023-08-21] MEDS: ATROPINE SULFATE 1% OPHTH SOLN 2ML BTL OD SCH (10:50)
[2023-08-21] MEDS: TROPICAMIDE 1% OPHTH SOLN 15ML OD SCH (10:50)
[2023-08-21] MEDS: PROPARACAINE 0.5% OPHTH SOL 15ML OD ONE (10:50)
[2023-08-21] MEDS: OFLOXACIN 0.3 % (OCUFLOX) OPTH SOL 5ML OD SCH (10:50)
[2023-08-21] MEDS: PHENYLEPHRINE 2.5% OPHTH SOL 2ML OD SCH (10:50)
[2023-08-21] MEDS: LIDOCAINE 1% SDV 5ML VIAL As Ordered ONE (11:57)
[2023-08-21] MEDS: BSS PLUS IR ONE (11:57)
[2023-08-21] MEDS: EPINEPHRINE IR ONE (11:57)
[2023-08-21] MEDS: CEFUROXIME 1MG/0.1ML INTRACAMERAL INJ As Ordered ONE (11:59)
[2023-08-21 12:08] VITALS: BP 129/68; TEMP 97.6; O2SAT 96
== END 2023-08-21 12:29 | disposition home or self-care (01) ==
LOC: M SDC 10:09
PROVIDERS: ATTEND Ophthalmology
DX: H25.11 Age-related nuclear cataract, right eye (principal); I48.91 Unspecified atrial fibrillation; I10 Essential (primary) hypertension; I71.40 Abdominal aortic aneurysm, without rupture, unspecified; R32 Unspecified urinary incontinence; Z79.899 Other long term (current) drug therapy; Z79.02 Long term (current) use of antithrombotics/antiplatelets; Z86.73 Personal history of transient ischemic attack (TIA), and cerebral infarction without residual deficits; Z90.710 Acquired absence of both cervix and uterus; Z98.42 Cataract extraction status, left eye; Z90.49 Acquired absence of other specified parts of digestive tract; Z88.0 Allergy status to penicillin; Z88.8 Allergy status to other drugs, medicaments and biological substances; Z88.6 Allergy status to analgesic agent
CPT/HCPCS: 66984; J0697; J2250; J3010; V2632

== ENCOUNTER → 2023-10-03 | Outpatient (CLI) | payer MEDICARE ==
[~2023-10-03] MED LIST changes: -MIDAZOLAM INJ 2MG/2ML VIAL As Ordered ONE; -fentaNYL 100 MCG/2 ML INJECTION As Ordered ONE
== END ==
LOC: M RAD 12:49
PROVIDERS: ATTEND Internal Medicine Pulmonary Disease
DX: I71.20 Thoracic aortic aneurysm, without rupture, unspecified (principal); R91.8 Other nonspecific abnormal finding of lung field; Z95.828 Presence of other vascular implants and grafts

== ENCOUNTER → 2023-10-12 | Outpatient (CLI) | payer MEDICARE | LOC: M RAD 09:38 | PROVIDERS: ATTEND Surgery Vascular Surgery | DX: Z48.812 Encounter for surgical aftercare following surgery on the circulatory system (principal); I77.72 Dissection of iliac artery; I71.40 Abdominal aortic aneurysm, without rupture, unspecified; Z95.820 Peripheral vascular angioplasty status with implants and grafts ==

== ENCOUNTER → 2023-11-19 | Outpatient (REF) | payer MEDICARE | LOC: M LAB REF 16:15 | PROVIDERS: ATTEND Nurse Practitioner Adult Health | DX: N39.0 Urinary tract infection, site not specified (principal) ==

== ENCOUNTER → 2024-02-14 | Outpatient (CLI) | payer MEDICARE | LOC: M PLAIMG 12:27 | PROVIDERS: ATTEND Internal Medicine Cardiovascular Disease | DX: I27.81 Cor pulmonale (chronic) (principal); I35.1 Nonrheumatic aortic (valve) insufficiency; R06.02 Shortness of breath; I27.20 Pulmonary hypertension, unspecified; I37.1 Nonrheumatic pulmonary valve insufficiency ==

== ENCOUNTER → 2024-02-19 | Outpatient (CLI) | payer MEDICARE | LOC: M WHC 12:36 | PROVIDERS: ATTEND Nurse Practitioner Adult Health | DX: Z13.820 Encounter for screening for osteoporosis (principal); M81.8 Other osteoporosis without current pathological fracture ==

== ENCOUNTER → 2024-03-11 | Outpatient (REF) | payer MEDICARE | LOC: M LAB REF 16:24 | PROVIDERS: ATTEND Nurse Practitioner Adult Health | DX: N39.0 Urinary tract infection, site not specified (principal) ==

== ENCOUNTER → 2024-09-01 | Outpatient (REF) | payer MEDICARE ==
[~2024-09-01] MED LIST changes: -CYCL5TAB PO; +CYCL5TAB4 PO
== END ==
LOC: M LAB REF 12:18
PROVIDERS: ATTEND Nurse Practitioner Family
DX: R30.0 Dysuria (principal)

== ENCOUNTER → 2024-10-14 | Outpatient (CLI) | payer MEDICARE | LOC: M RAD 09:49 | PROVIDERS: ATTEND Physician Assistant | DX: I71.43 Infrarenal abdominal aortic aneurysm, without rupture (principal); Z48.812 Encounter for surgical aftercare following surgery on the circulatory system; I70.1 Atherosclerosis of renal artery ==

== ENCOUNTER → 2025-01-23 | Outpatient (CLI) | payer MEDICARE ==
[~2025-01-23] MED LIST changes: +ISOVUE-370 76% 100 ML VIAL ONE; -PRAV20TA2 PO; +PRAV20TA78 PO; -PRAV40TA2 PO; +PRAV40TA85 PO
== END ==
LOC: M PLAIMG 10:45
PROVIDERS: ATTEND Nurse Practitioner Adult Health
DX: D48.5 Neoplasm of uncertain behavior of skin (principal); E04.2 Nontoxic multinodular goiter
CPT/HCPCS: 70491; Q9967

== ENCOUNTER → 2025-02-04 | Outpatient (REF) | payer MEDICARE ==
[~2025-02-04] MED LIST changes: -ISOVUE-370 76% 100 ML VIAL ONE
== END ==
LOC: M LAB REF 17:18
PROVIDERS: ATTEND Nurse Practitioner Adult Health
DX: E04.1 Nontoxic single thyroid nodule (principal)

== ENCOUNTER → 2025-02-24 | Outpatient (CLI) | payer MEDICARE | LOC: M RAD 15:13 | PROVIDERS: ATTEND Nurse Practitioner Adult Health | DX: D48.5 Neoplasm of uncertain behavior of skin (principal) ==

== ENCOUNTER → 2025-02-25 | Outpatient (REF) | payer MEDICARE ==
[2025-02-25 15:46] LABS: THYROGLOBULIN ANTIBODY 61.0 U/ML (<60.0)
[2025-02-25 15:51] LABS: THYROID PEROXIDASE ANTIBODY > 1300.0 U/ML (<60.0)
== END ==
LOC: M LAB REF 14:26
PROVIDERS: ATTEND Nurse Practitioner Adult Health
DX: E04.1 Nontoxic single thyroid nodule (principal)